=== PATIENT | female | born 1930 | race African-American/Black ===

== ENCOUNTER 2016-06-30 20:12 | Emergency (ER) | payer MEDICARE, OTHER ==
[~2016-06-30] VITALS: Ht 154.9 cm; Wt 49.9 kg
[~2016-06-30 20:12] MED LIST: BISM1CAP PO; CARB15DR3 EACHEYE; DEXL60CA PO; FURO40TA4 PO; LEVO25TA4 PO; LEVO50TA5 PO; LOSA25TA4 PO; METO-269 PO; METO10TA81 PO; MULT-658 PO; POLY17PO5 PO; POTA10TA5 PO; PRAV40TA2 PO; RALO60TA PO; oscal
[2016-07-01 00:30] VITALS: BP 216/88
[2016-07-01] MEDS ORDERED: DOCU100C5 PO (00:52)
[2016-07-01] MEDS ORDERED: SENN8.6T3 PO (00:52)
--- NOTE | 2016-07-01 00:52 | PHYS DOC ---
Past Medical History Past Medical History: Diverticulosis, GERD, High Cholesterol, Hypertension, Hypothyroid, IBS Additional Past Medical Histor: H-Pylori, LE edema, borderline glaucoma, dry eyes Past Surgical History: Hysterectomy, Other Additional Past Surgical Histo: cataract sg bilat eyes, Alcohol Use: None Drug Use: None Adult General Chief Complaint Chief Complaint: CONSTIPATION HPI HPI 86-year-old female presenting to the emergency department today with constipation for the past few days. She denies abdominal pain. She is tried MiraLAX without relief. She has a history of using milk of magnesia and was told not to use that anymore. Otherwise she denies nausea vomiting. She has been passing flatus. Onset 2 days. Location GI tract. Duration intermittent. No alleviating factors present. Review of systems is negative for chest pain shortness of breath nausea vomiting fevers chills. She denies abdominal pain. All other review of systems is negative unless otherwise noted in history of present illness. Review of Systems Review of Systems SEE ABOVE. Allergies Allergies Allergies Coded Allergies Type Severity Reaction Last Updated Verified atorvastatin Allergy Intermediate rash 05/18/15 Yes azithromycin Allergy Intermediate very red face, neck, and chest 05/18/15 Yes clarithromycin Allergy Intermediate rash 05/18/15 Yes meperidine Adverse Reaction Intermediate N&V 05/18/15 Yes midazolam Adverse Reaction Intermediate N&V 03/02/15 No Physical Exam Physical Exam Constitutional: Well developed, well nourished, no acute distress, non-toxic appearance. HENT: Normocephalic, atraumatic, bilateral external ears normal, oropharynx moist, no oral exudates, nose normal. Eyes: PERRLA, EOMI, conjunctiva normal, no discharge. Neck: Normal range of motion, no tenderness, supple, no stridor. [] Cardiovascular:Heart rate regular rhythm, no murmur [] Lungs & Thorax: Bilateral breath sounds clear to auscultation Abdomen: Soft nontender abdomen without rebound tenderness or guarding present. Negative McBurneys point. Negative Swanson sign. No ecchymosis present. Skin: Warm, dry, no erythema, no rash. [] Back: No tenderness, no CVA tenderness. [] Extremities: No tenderness, no cyanosis, no clubbing, ROM intact, no edema. Neurologic: Alert and oriented X 3, normal motor function, normal sensory function, no focal deficits noted. Psychologic: Affect normal, judgement normal, mood normal. [] Current Patient Data Vital Signs Vital Signs Date Time Temp Pulse Resp B/P Pulse Ox O2 Delivery O2 Flow Rate FiO2 06/30/16 21:27 97.8 74 16 191/89 97 Room Air 97.8 EKG EKG [] Radiology/Procedures Radiology/Procedures [] Course & Med Decision Making Course & Med Decision Making Pertinent Labs and Imaging studies reviewed. (See chart for details) [] 86-year-old female presenting to the emergency department with constipation without abdominal pain. Vital signs afebrile normal heart rate. Blood pressure elevated in the emergency department however she reports chronically. She denies any evidence of end organ dysfunction. She denies vision changes, oliguria, chest pain shortness of breath. No pulmonary edema on auscultation of the lungs. Abdomen was soft and nontender. I recommended the patient start docusate and senna in addition to her MiraLAX and follow up with her primary care doctor over the next 2-3 days. Also she needs another colonoscopy as it is been more than 5 years so I referred her to Dr. Fields her GI specialist for further evaluation workup and care as well. Dragon Disclaimer Dragon Disclaimer This electronic medical record was generated, in whole or in part, using a voice recognition dictation system. Departure Departure Impression: Primary Impression: Constipation Disposition: 01 HOME, SELF-CARE Condition: STABLE Referrals: NIKKI FOX MD (PCP) Patient Instructions: Constipation, Adult Additional Instructions: Thank you for allowing us to participate in your care today. Followup with your primary care physician in 3 days if your symptoms do not improve. If you do not have a primary care provider you can ask for a list of our primary care providers. Return to the emergency department you have any new or concerning findings. This should be evaluated by the primary care physician and any necessary consulting services for continued management within a few days after discharge. Return to emergency room if you have any new or concerning symptoms including but not limited to fever, chills, nausea, vomiting, intractable pain, any new rashes, chest pain, shortness of air, uncontrolled bleeding, difficulty breathing, and/or vision loss. Scripts Sennosides (Senna)8.6 Mg Tablet8.6 Mg PO DAILY #14 Prov:NICK ROTHMAN MD 07/01/16 Docusate Sodium 100 Mg Capsule1 Cap PO DAILY #30 CAP Prov:NICK ROTHMAN MD 07/01/16 NICK ROTHMAN MD Jul 01, 2016 00:52
== END 2016-07-01 01:10 | disposition home or self-care (01) ==
LOC: ER 20:12
DX: K59.00 Constipation, unspecified (principal); K58.9 Irritable bowel syndrome, unspecified; K21.9 Gastro-esophageal reflux disease without esophagitis; I10 Essential (primary) hypertension; E78.00 Pure hypercholesterolemia, unspecified; E03.9 Hypothyroidism, unspecified; Z90.710 Acquired absence of both cervix and uterus; Z88.1 Allergy status to other antibiotic agents; Z88.8 Allergy status to other drugs, medicaments and biological substances
CPT/HCPCS: 99283

== ENCOUNTER → 2016-10-27 | Outpatient (CLI) | payer MEDICARE, OTHER ==
[~2016-10-27] MED LIST changes: -DEXL60CA PO; +DEXL60CA2 PO; +DOCU100C28 PO; +POLY17PO29 PO; -POLY17PO5 PO; +SENN-79 PO
--- NOTE | 2016-10-27 13:17 | KCIC ---
Indication: Left leg pain and tingling in the thigh. Grayscale, color-flow and duplex Doppler evaluation of the left lower extremity deep venous system was performed. FINDINGS: There is no evidence of a left lower extremity DVT. The left lower extremity venous system demonstrates normal compressibility with normal response to augmentation and Valsalva. No soft tissue fluid collections are identified. IMPRESSION: No evidence of left lower extremity DVT. Electronically signed by: Yung Wong MD (10/27/2016 1:13 PM) [id number]
== END | disposition home or self-care (01) ==
LOC: KCIC US 12:22
PROVIDERS: ATTEND Podiatrist Foot & Ankle Surgery
DX: M79.605 Pain in left leg (principal); R20.2 Paresthesia of skin
CPT/HCPCS: 93971

== ENCOUNTER 2017-01-13 13:06 | Emergency (ER) | payer MEDICARE, OTHER ==
[~2017-01-13] VITALS: Ht 152.4 cm; Wt 49.0 kg
--- NOTE | 2017-01-13 13:44 | PHYS DOC ---
Past Medical History Past Medical History: Diverticulosis, GERD, High Cholesterol, Hypertension, Hypothyroid, IBS Additional Past Medical Histor: H-Pylori, LE edema, borderline glaucoma, dry eyes Past Surgical History: Hysterectomy, Other Additional Past Surgical Histo: cataract sg bilat eyes, Alcohol Use: None Drug Use: None Adult General Chief Complaint Chief Complaint: CONTISPATION HPI HPI Patient is a 86 year old female who presents with. She states Sunday was a last time she had normal bowel movement she does suffer from constipation is been on different medications for this. She was seen here recently and started on . She states she has some pain in the left lower quadrant. She denies any fevers chills nausea or vomiting, she denies any blood in her stools. She states she has been passing gas. She states she's had a history of pelvic floor surgeries, and a hysterectomy. Review of Systems Review of Systems Constitutional: Denies fever or chills [] Eyes: Denies change in visual acuity, redness, or eye pain [] HENT: Denies nasal congestion or sore throat [] Respiratory: Denies cough or shortness of breath [] Cardiovascular: No additional information not addressed in HPI [] GI: Positive for abdominal pain,Denies nausea, vomiting, bloody stools or diarrhea [] : Denies dysuria or hematuria [] Musculoskeletal: Denies back pain or joint pain [] Integument: Denies rash or skin lesions [] Neurologic: Denies headache, focal weakness or sensory changes [] Endocrine: Denies polyuria or polydipsia [] Current Medications Current Medications Current Medications Medications (Trade) Dose Ordered Sig/Levon Start Time Stop Time Status Last Admin Dose Admin Info (Do NOT chart on this entry -- for MONITORING) 1 each PRN DAILY PRN 01/13/17 15:30 01/15/17 15:29 Iohexol (Omnipaque 300 Mg/ml) 75 ml 1X ONCE 01/13/17 15:15 01/13/17 15:16 DC 01/13/17 16:14 75 ML Magnesium Citrate (Citroma) 296 ml 1X ONCE 01/13/17 18:15 01/13/17 18:16 Ringer's Solution 500 ml @ 1,000 mls/hr Q30M 01/13/17 15:01 01/13/17 15:30 DC 01/13/17 15:29 1,000 MLS/HR Sodium Monofluorophosphate (Fleet Adult) 133 ml 1X ONCE 01/13/17 17:00 01/13/17 17:01 DC 01/13/17 17:31 133 ML Allergies Allergies Allergies Coded Allergies Type Severity Reaction Last Updated Verified atorvastatin Allergy Intermediate rash 05/18/15 Yes azithromycin Allergy Intermediate very red face, neck, and chest 05/18/15 Yes clarithromycin Allergy Intermediate rash 05/18/15 Yes meperidine Adverse Reaction Intermediate N&V 05/18/15 Yes midazolam Adverse Reaction Intermediate N&V 03/02/15 No Physical Exam Physical Exam Constitutional: Well developed, well nourished, no acute distress, non-toxic appearance. [] HENT: Normocephalic, atraumatic, bilateral external ears normal, oropharynx moist, no oral exudates, nose normal. [] Eyes: PERRLA, EOMI, conjunctiva normal, no discharge. [] Neck: Normal range of motion, no tenderness, supple, no stridor. [] Cardiovascular:Heart rate regular rhythm, no murmur [] Lungs & Thorax: Bilateral breath sounds clear to auscultation [] Abdomen: Bowel sounds hyperactive, high-pitched, soft, no tenderness, no masses , no pulsatile masses. [] Skin: Warm, dry, no erythema, no rash. [] Back: No tenderness, no CVA tenderness. [] Extremities: No tenderness, no cyanosis, no clubbing, ROM intact, no edema. [] Neurologic: Alert and oriented X 3, normal motor function, normal sensory function, no focal deficits noted. [] Psychologic: Affect normal, judgement normal, mood normal. [] Current Patient Data Vital Signs Vital Signs Date Time Temp Pulse Resp B/P (MAP) Pulse Ox O2 Delivery O2 Flow Rate FiO2 01/13/17 14:00 98.2 74 18 98 Room Air 98.2 Lab Values Laboratory Tests Test 01/13/17 15:35 01/13/17 16:12 White Blood Count 7.0 x10^3/uL (4.0-11.0) Red Blood Count 3.82 x10^6/uL (3.50-5.40) Hemoglobin 12.2 g/dL (12.0-15.5) Hematocrit 36.1 % (36.0-47.0) Mean Corpuscular Volume 95 fL (79-100) Mean Corpuscular Hemoglobin 32 pg (25-35) Mean Corpuscular Hemoglobin Concent 34 g/dL (31-37) Red Cell Distribution Width 13.4 % (11.5-14.5) Platelet Count 214 x10^3/uL (140-400) Neutrophils (%) (Auto) 80 % (31-73) H Lymphocytes (%) (Auto) 8 % (24-48) L Monocytes (%) (Auto) 11 % (0-9) H Eosinophils (%) (Auto) 1 % (0-3) Basophils (%) (Auto) 0 % (0-3) Neutrophils # (Auto) 5.6 x10^3uL (1.8-7.7) Lymphocytes # (Auto) 0.6 x10^3/uL (1.0-4.8) L Monocytes # (Auto) 0.8 x10^3/uL (0.0-1.1) Eosinophils # (Auto) 0.0 x10^3/uL (0.0-0.7) Basophils # (Auto) 0.0 x10^3/uL (0.0-0.2) Prothrombin Time 12.8 SEC (11.7-14.0) Prothrombin Time INR 1.0 (0.8-1.1) PTT 32 SEC (24-38) Sodium Level 132 mmol/L (136-145) L Potassium Level 3.9 mmol/L (3.5-5.1) Chloride Level 96 mmol/L (98-107) L Carbon Dioxide Level 30 mmol/L (21-32) Anion Gap 6 (6-14) Blood Urea Nitrogen 13 mg/dL (7-20) Creatinine 0.5 mg/dL (0.6-1.0) L Estimated GFR (Cockcroft-Gault) 141.9 Glucose Level 111 mg/dL (70-99) H Calcium Level 9.1 mg/dL (8.5-10.1) Total Bilirubin 0.3 mg/dL (0.2-1.0) Direct Bilirubin 0.1 mg/dL (0.0-0.2) Aspartate Amino Transferase (AST) 33 U/L (15-37) Alanine Aminotransferase (ALT) 26 U/L (14-59) Alkaline Phosphatase 80 U/L (46-116) Total Protein 7.2 g/dL (6.4-8.2) Albumin 3.7 g/dL (3.4-5.0) Lipase 171 U/L (73-393) Urine Collection Type Unknown Urine Color Yellow Urine Clarity Clear Urine pH 7.0 Urine Specific [place] <=1.005 Urine Protein Negative mg/dL (NEG-TRACE) Urine Glucose (UA) Negative mg/dL (NEG) Urine Ketones (Stick) Negative mg/dL (NEG) Urine Blood Negative (NEG) Urine Nitrite Negative (NEG) Urine Bilirubin Negative (NEG) Urine Urobilinogen Dipstick 0.2 mg/dL (0.2 mg/dL) Urine Leukocyte Esterase Negative (NEG) Urine RBC Occ /HPF (0-2) Urine WBC Occ /HPF (0-4) Urine Squamous Epithelial Cells Few /LPF Urine Bacteria 0 /HPF (0-FEW) Laboratory Tests 01/13/17 15:35 Laboratory Tests 01/13/17 15:35 EKG EKG [] Radiology/Procedures Radiology/Procedures [facility] [address] [place] [address] IMAGING REPORT Signed PATIENT: JEFFERY NO ACCOUNT: [id number] : 1930 LOCATION: ER AGE: 86 SEX: F EXAM STATUS: REG ER ORD. PHYSICIAN: EDX DASILVA MD REASON: abd pain PROCEDURE: CT ABD PELV W/ IV CONTRST ONLY CT SCAN OF THE ABDOMEN AND PELVIS WITH IV CONTRAST. History: Abdominal pain, no bowel movement for 3 days Comparison: February 26, 2015. Procedure: Contiguous axial images of the abdomen and pelvis were performed after the administration of 75 cc of Omni 300 IV contrast and without oral contrast. CT Abdomen with contrast: Findings: Liver: Unremarkable Spleen: Unremarkable Pancreas: Unremarkable Adrenal Glands: Unremarkable Kidneys: Unremarkable There is no mass or lymphadenopathy. There is no free air. There is no free fluid. Impression: No acute findings. End Impression CT Pelvis with Contrast: Findings: The urinary bladder appears normal. There is no free fluid. There is no lymphadenopathy. There may have been prior hysterectomy. Urinary bladder sits low in the pelvis suggesting pelvic relaxation. This is unchanged. The L2 vertebral body compression fracture seen present. The L3 and L4 vertebral body compression fractures are not seen previously but appear old. The appendix is not seen. Impression: Old vertebral body compression fractures. No acute findings. PQRS Compliance Statement: One or more of the following individualized dose reduction techniques were utilized for this examination: 1. Automated exposure control 2. Adjustment of the mA and/or kV according to patient size 3. Use of iterative reconstruction technique Electronically signed by: Tegan Kennedy III, MD (01/13/2017 4:40 PM) [facility] DICTATED and SIGNED BY: TEGAN KENNEDY III, MD DATE: 01/13/17 4993 CC: DEX DASILVA MD; NIKKI FOX MD ~ Impressions: Constipation Hypertension Course & Med Decision Making Course & Med Decision Making Pertinent Labs and Imaging studies reviewed. (See chart for details) Acute abdominal series was concerning for possible mild ileus, CT scan nonacute. Patient received an enema and has had good success. She feels better. She's being discharged home with mag citrate. Return precautions given. She is to follow-up with Dr. Fields with GI, her daughter is with her and giving discharged in stable condition this time. Patient's blood pressures to 18 systolic and according to the patient and her daughter she has white coat syndrome and since she's having discomfort from her constipation is why her blood pressures up. He states they will recheck on the get home and follow-up if it stays elevated. She doesn't have a headache or any other concerning symptoms at this time. Dragon Disclaimer Dragon Disclaimer This electronic medical record was generated, in whole or in part, using a voice recognition dictation system. Departure Departure Impression: Primary Impression: Constipation Disposition: 01 HOME, SELF-CARE Condition: STABLE Referrals: NIKKI FOX MD (PCP) OBDULIA FIELDS MD Patient Instructions: Constipation, Adult, [id number] Additional Instructions: You were seen today for your constipation. The CAT scan did not show any acute abnormality's. Your blood work also was within normal limits. You had good success with an enema. He remained discharged with mag citrate. Please drink half the bottle and wait approximate hour if you do not have a bowel movement that he can consume the rest the bottle. If you develop severe abdominal pain, fevers, uncontrolled nausea vomiting or other concerns please return back to ER. You will need to follow-up with Dr. Fields with GI. Problem Qualifiers Primary Impression: Constipation Constipation type: unspecified constipation type Qualified Codes: K59.00 - Constipation, unspecified DEX DASILVA MD Jan 13, 2017 13:44
--- NOTE | 2017-01-13 14:55 | RAD ---
Three-view acute abdominal series. History: Constipation 3 views were taken for an acute abdominal series. There are granulomas in the right lung. The lungs are free of infiltrates. Heart is normal in size. There is no effusion. There is thoracolumbar scoliosis. There is no free air on the upright view of the abdomen. There are nonspecific air-fluid levels. There is mild to moderate stool in the colon. There is mild stool in the rectum. There is no small bowel obstruction. Impression: 1. Nonspecific air-fluid levels possible mild ileus. 2. Mild to moderate stool in the colon. 3. No acute chest disease.
[2017-01-13] MEDS ORDERED: IV RINGERS,LACTATED 1000ML 500 ML IV SCH (15:01)
[2017-01-13] MEDS ORDERED: IOHEXOL 300 MG/ML 75 ML VIAL IV ONE (15:15)
[2017-01-13] MEDS ORDERED: CONTRAST GIVEN MC PRN (15:30)
[2017-01-13 15:51] LABS: BASO % 0 % (0-3); EOS % 1 % (0-3); HEMATOCRIT 36.1 % (36.0-47.0); HEMOGLOBIN 12.2 g/dL (12.0-15.5); LYMPH # 0.6 x10^3/uL (1.0-4.8); LYMPH % 8 % (24-48); MEAN CORPUSCULAR HEMOGLOBIN 32 pg (25-35); MEAN CORPUSCULAR HGB CONC 34 g/dL (31-37); MEAN CORPUSCULAR VOLUME 95 fL (79-100); MONO % 11 % (0-9); NEUT % 80 % (31-73); PLATELET COUNT 214 x10^3/uL (140-400); RED BLOOD COUNT 3.82 x10^6/uL (3.50-5.40); RED CELL DISTRIBUTION WIDTH 13.4 % (11.5-14.5)
[2017-01-13 15:56] LABS: CALCIUM 9.1 mg/dL (8.5-10.1); CREATININE 0.5 mg/dL (0.6-1.0); GFR 141.9; POTASSIUM 3.9 mmol/L (3.5-5.1)
[2017-01-13 16:04] LABS: PROTHROMBIN TIME PATIENT 12.8 SEC (11.7-14.0)
[2017-01-13 16:05] LABS: ALBUMIN 3.7 g/dL (3.4-5.0); DIRECT BILIRUBIN 0.1 mg/dL (0.0-0.2); TOTAL BILIRUBIN 0.3 mg/dL (0.2-1.0); TOTAL PROTEIN 7.2 g/dL (6.4-8.2)
[2017-01-13 16:24] LABS: BILIRUBIN,URINE NEGATIVE (NEG); GLUCOSE,URINE NEGATIVE (NEG); NITRITE,URINE NEGATIVE (NEG); PROTEIN,URINE NEGATIVE (NEG-TRACE); UROBILINOGEN,URINE 0.2 mg/dL (0.2 mg/dL)
[2017-01-13 16:41] LABS: BACTERIA,URINE 0 /HPF (0-FEW); RBC,URINE OCC /HPF (0-2); SQUAMOUS EPITHELIAL CELL,UR FEW /LPF; WBC,URINE OCC /HPF (0-4)
--- NOTE | 2017-01-13 16:44 | RAD ---
CT SCAN OF THE ABDOMEN AND PELVIS WITH IV CONTRAST. History: Abdominal pain, no bowel movement for 3 days Comparison: February 26, 2015. Procedure: Contiguous axial images of the abdomen and pelvis were performed after the administration of 75 cc of Omni 300 IV contrast and without oral contrast. CT Abdomen with contrast: Findings: Liver: Unremarkable Spleen: Unremarkable Pancreas: Unremarkable Adrenal Glands: Unremarkable Kidneys: Unremarkable There is no mass or lymphadenopathy. There is no free air. There is no free fluid. Impression: No acute findings. End Impression CT Pelvis with Contrast: Findings: The urinary bladder appears normal. There is no free fluid. There is no lymphadenopathy. There may have been prior hysterectomy. Urinary bladder sits low in the pelvis suggesting pelvic relaxation. This is unchanged. The L2 vertebral body compression fracture seen present. The L3 and L4 vertebral body compression fractures are not seen previously but appear old. The appendix is not seen. Impression: Old vertebral body compression fractures. No acute findings. PQRS Compliance Statement: One or more of the following individualized dose reduction techniques were utilized for this examination: 1. Automated exposure control 2. Adjustment of the mA and/or kV according to patient size 3. Use of iterative reconstruction technique Electronically signed by: Mervin Lucio III, MD (01/13/2017 4:40 PM) [facility]
[2017-01-13] MEDS ORDERED: SODIUM PHOSPHATES 19/7GM 133 ML ENEMA. PR ONE (17:00)
[2017-01-13 18:07] VITALS: BP 223/94
[2017-01-13] MEDS ORDERED: MAGNESIUM CITRATE 296 ML SOLUTION. PO ONE (18:15)
== END 2017-01-13 18:42 | disposition home or self-care (01) ==
LOC: ER 13:06
DX: K59.00 Constipation, unspecified (principal); E78.00 Pure hypercholesterolemia, unspecified; I10 Essential (primary) hypertension; E03.9 Hypothyroidism, unspecified; K21.9 Gastro-esophageal reflux disease without esophagitis; K58.9 Irritable bowel syndrome, unspecified; Z87.19 Personal history of other diseases of the digestive system; Z90.710 Acquired absence of both cervix and uterus; Z88.6 Allergy status to analgesic agent; Z88.1 Allergy status to other antibiotic agents; Z88.8 Allergy status to other drugs, medicaments and biological substances
CPT/HCPCS: 36415; 74022; 74177; 80048; 80076; 81001; 83690; 85025; 85610; 85730; 96360; 99285; Q9967; J7120

== ENCOUNTER 2017-01-15 09:22 | Inpatient (IN) | payer MEDICARE, OTHER ==
[~2017-01-15] VITALS: Ht 152.4 cm; Wt 47.8 kg
--- NOTE | 2017-01-15 09:52 | EKG ---
[facility] [address] [place] [address] Test Date: 2017-01-15 Test Time: 09:30:58 Pat Name: JEFFERY NO Department: Room: Gender: F Sanitary Plumber: : 1930 Requested By: SAMIA BURNETTE Order Number: [id number] Reading MD: Danish Hickey Measurements Intervals [place] Rate: 81 P: 90 IN: 152 QRS: 49 QRSD: 92 T: 44 QT: 374 QTc: 435 Interpretive Statements SINUS RHYTHM Electronically Signed On 02-06-2017 14:27:21 CDT by Danish Hickey
[2017-01-15 10:09] LABS: BILIRUBIN,URINE NEGATIVE (NEG); GLUCOSE,URINE NEGATIVE (NEG)
[2017-01-15 10:10] LABS: BACTERIA,URINE 0 /HPF (0-FEW); NITRITE,URINE NEGATIVE (NEG); PROTEIN,URINE TRACE mg/dL (NEG-TRACE); RBC,URINE OCC /HPF (0-2); UROBILINOGEN,URINE 0.2 mg/dL (0.2 mg/dL); WBC,URINE OCC /HPF (0-4)
[2017-01-15 10:17] LABS: BASO % 0 % (0-3); EOS % 0 % (0-3); HEMATOCRIT 34.8 % (36.0-47.0); HEMOGLOBIN 11.8 g/dL (12.0-15.5); LYMPH # 0.3 x10^3/uL (1.0-4.8); LYMPH % 4 % (24-48); MEAN CORPUSCULAR HEMOGLOBIN 32 pg (25-35); MEAN CORPUSCULAR HGB CONC 34 g/dL (31-37); MEAN CORPUSCULAR VOLUME 94 fL (79-100); MONO % 6 % (0-9); NEUT % 89 % (31-73); PLATELET COUNT 208 x10^3/uL (140-400); RED BLOOD COUNT 3.71 x10^6/uL (3.50-5.40); RED CELL DISTRIBUTION WIDTH 13.4 % (11.5-14.5); WHITE BLOOD COUNT 7.4 x10^3/uL (4.0-11.0)
[2017-01-15 10:25] LABS: CALCIUM 9.1 mg/dL (8.5-10.1); CREATININE 0.4 mg/dL (0.6-1.0); GFR 183.6; POTASSIUM 4.4 mmol/L (3.5-5.1)
[2017-01-15] MEDS ORDERED: IV NORMAL SALINE 1000ML BAG 1,000 ML IV ONE ×2 (10:30→14:00)
[2017-01-15] MEDS ORDERED: fentaNYL PF VIAL 100 MCG/2 ML VIAL IV PRN ×2 (10:30→14:00)
[2017-01-15 10:33] LABS: ALBUMIN 3.6 g/dL (3.4-5.0); TOTAL BILIRUBIN 0.6 mg/dL (0.2-1.0); TOTAL PROTEIN 7.1 g/dL (6.4-8.2)
[2017-01-15] MEDS ORDERED: ONDANSETRON PF 4 MG/2 ML VIAL. IV ONE (10:45)
[2017-01-15] MEDS ORDERED: METOPROLOL SUCC 24HR ER 50 MG TAB.ER.24H. PO ONE (10:45)
[2017-01-15] MEDS ORDERED: LEVOTHYROXINE 50 MCG TABLET PO ONE (10:45)
[2017-01-15] MEDS ORDERED: CEPHALEXIN 250 MG CAPSULE. PO ONE (10:45)
--- NOTE | 2017-01-15 10:45 | ED.ADGEN ---
Past Medical History Past Medical History: Diverticulosis, GERD, High Cholesterol, Hypertension, Hypothyroid, IBS Additional Past Medical Histor: H-Pylori, LE edema, borderline glaucoma, dry eyes Past Surgical History: Hysterectomy, Other Additional Past Surgical Histo: cataract sg bilat eyes, rectal surgery, pelvic floor Alcohol Use: None Drug Use: None Adult General Chief Complaint Chief Complaint: NAUSEA/VOMITING/DIARRHA HPI HPI Patient is a 86 year old female who presents with vague lower abdominal pain, diarrhea, generalized fatigue, nausea and inability to keep fluids down. Patient states her symptoms started last week when she was diagnosed with constipation and treated with an enema and mag citrate after having a CT performed showing no acute findings. Then she developed watery diarrhea and this persisted and continues. She's had no dysuria or change in urination, although actively on Keflex for reported UTI. Denies fever. Abdominal pain has changed. She also reports left lower back pain, worse with rotation or bending , no radiation to legs, no new bowel/bladder incontinence reported or saddle sensory change. Denies fevers. Review of Systems Review of Systems Constitutional: Denies fever or chills. [] Eyes: Denies change in visual acuity. [] HENT: Denies nasal congestion or sore throat. [] Respiratory: Denies cough or shortness of breath. [] Cardiovascular: Denies chest pain or edema. [] GI: per hpi : Denies dysuria. [] Musculoskeletal: Denies joint pain. [] Integument: Denies rash. [] Neurologic: Denies headache, focal weakness or sensory changes. [] Current Medications Current Medications Current Medications Medications (Trade) Dose Ordered Sig/Levon Start Time Stop Time Status Last Admin Dose Admin Cephalexin HCl (Keflex) 500 mg 1X ONCE 01/15/17 10:45 01/15/17 10:46 DC 01/15/17 11:07 500 MG Fentanyl Citrate (Fentanyl 2ml Vial) 25 mcg PRN Q15MIN PRN 01/15/17 10:30 01/15/17 10:42 25 MCG Levothyroxine Sodium (Synthroid) 50 mcg 1X ONCE 01/15/17 10:45 01/15/17 10:46 DC 01/15/17 11:07 50 MCG Metoprolol Succinate (Toprol Xl) 50 mg 1X ONCE 01/15/17 10:45 01/15/17 10:46 DC 01/15/17 11:08 50 MG Ondansetron HCl (Zofran) 4 mg 1X ONCE 01/15/17 10:45 01/15/17 10:46 DC 01/15/17 11:06 4 MG Sodium Chloride 1,000 ml @ 1,000 mls/hr 1X ONCE 01/15/17 10:30 01/15/17 11:29 DC 01/15/17 10:40 1,000 MLS/HR Allergies Allergies Allergies Coded Allergies Type Severity Reaction Last Updated Verified atorvastatin Allergy Intermediate rash 05/18/15 Yes azithromycin Allergy Intermediate very red face, neck, and chest 05/18/15 Yes clarithromycin Allergy Intermediate rash 05/18/15 Yes meperidine Adverse Reaction Intermediate N&V 05/18/15 Yes midazolam Adverse Reaction Intermediate N&V 03/02/15 No Physical Exam Physical Exam Constitutional: Well developed, well nourished, pale, doesn't want to move, appears uncomfortable HENT: Normocephalic, atraumatic, bilateral external ears normal, oropharynx moist, no oral exudates, nose normal. [] Eyes: PERRLA, EOMI, conjunctiva normal, no discharge. [] Neck: Normal range of motion, no tenderness, supple, no stridor. [] Cardiovascular:Heart rate regular rhythm, no murmur [] Lungs & Thorax: Bilateral breath sounds clear to auscultation [] Abdomen: Bowel sounds normal, soft, no tenderness, no masses, no pulsatile masses. [] Skin: Warm, dry, no erythema, no rash. [] Back: diffuse nonfocal ttp along lower back without focal midline stepoffs, neg straight leg test bilaterally. Extremities: No tenderness, no cyanosis, no clubbing, ROM intact, no edema. [] Neurologic: Alert and oriented X 3, normal motor function, normal sensory function, no focal deficits noted. [] Current Patient Data Vital Signs Vital Signs Date Time Temp Pulse Resp B/P (MAP) Pulse Ox O2 Delivery O2 Flow Rate FiO2 01/15/17 11:08 81 192/79 01/15/17 11:04 98 Room Air 01/15/17 10:46 18 01/15/17 09:24 97.9 97.9 Lab Values Laboratory Tests Test 01/15/17 09:50 01/15/17 10:05 Urine Collection Type U cath Urine Color Yellow Urine Clarity Clear Urine pH 7.0 Urine Specific [place] 1.020 Urine Protein Trace mg/dL (NEG-TRACE) Urine Glucose (UA) Negative mg/dL (NEG) Urine Ketones (Stick) 80 mg/dL (NEG) Urine Blood Trace (NEG) Urine Nitrite Negative (NEG) Urine Bilirubin Negative (NEG) Urine Urobilinogen Dipstick 0.2 mg/dL (0.2 mg/dL) Urine Leukocyte Esterase Negative (NEG) Urine RBC Occ /HPF (0-2) Urine WBC Occ /HPF (0-4) Urine Transitional Epithelial Cells Occ /LPF Urine Bacteria 0 /HPF (0-FEW) Urine Hyaline Casts Moderate /HPF White Blood Count 7.4 x10^3/uL (4.0-11.0) Red Blood Count 3.71 x10^6/uL (3.50-5.40) Hemoglobin 11.8 g/dL (12.0-15.5) L Hematocrit 34.8 % (36.0-47.0) L Mean Corpuscular Volume 94 fL (79-100) Mean Corpuscular Hemoglobin 32 pg (25-35) Mean Corpuscular Hemoglobin Concent 34 g/dL (31-37) Red Cell Distribution Width 13.4 % (11.5-14.5) Platelet Count 208 x10^3/uL (140-400) Neutrophils (%) (Auto) 89 % (31-73) H Lymphocytes (%) (Auto) 4 % (24-48) L Monocytes (%) (Auto) 6 % (0-9) Eosinophils (%) (Auto) 0 % (0-3) Basophils (%) (Auto) 0 % (0-3) Neutrophils # (Auto) 6.6 x10^3uL (1.8-7.7) Lymphocytes # (Auto) 0.3 x10^3/uL (1.0-4.8) L Monocytes # (Auto) 0.5 x10^3/uL (0.0-1.1) Eosinophils # (Auto) 0.0 x10^3/uL (0.0-0.7) Basophils # (Auto) 0.0 x10^3/uL (0.0-0.2) Segmented Neutrophils % 93 % (35-66) H Lymphocytes % 4 % (24-48) L Monocytes % 3 % (0-10) Platelet Estimate Adequate (ADEQUATE) Sodium Level 127 mmol/L (136-145) L Potassium Level 4.4 mmol/L (3.5-5.1) Chloride Level 91 mmol/L (98-107) L Carbon Dioxide Level 27 mmol/L (21-32) Anion Gap 9 (6-14) Blood Urea Nitrogen 16 mg/dL (7-20) Creatinine 0.4 mg/dL (0.6-1.0) L Estimated GFR (Cockcroft-Gault) 183.6 BUN/Creatinine Ratio 40 (6-20) H Glucose Level 91 mg/dL (70-99) Calcium Level 9.1 mg/dL (8.5-10.1) Total Bilirubin 0.6 mg/dL (0.2-1.0) Aspartate Amino Transferase (AST) 38 U/L (15-37) H Alanine Aminotransferase (ALT) 24 U/L (14-59) Alkaline Phosphatase 78 U/L (46-116) Total Protein 7.1 g/dL (6.4-8.2) Albumin 3.6 g/dL (3.4-5.0) Albumin/Globulin Ratio 1.0 (1.0-1.7) Laboratory Tests 01/15/17 10:05 Laboratory Tests 01/15/17 10:05 EKG EKG 81 bpm, sinus, normal axis, normal intervals, no ST elevation or depression, nonischemic T waves , interpreted by oh Radiology/Procedures Radiology/Procedures L spine: Impression: Scoliotic spine. Loss of intervertebral body heights in the lumbar spine more prominent at L4 vertebral body also seen on previous CT from 01/13/2017. Acute compression deformity cannot be ruled out. [] Course & Med Decision Making Course & Med Decision Making Pertinent Labs and Imaging studies reviewed. (See chart for details) Pt given pain medication, IV fluids. L spine XRay performed, reviewed findings. Discovered last CT performed after the injury of lower back and no acute fractures were noted at that time. Pt had additional diarrhea in the ED and now with hyponatremia. Will need ongoing fluids while recovering from diarrhea. Pt is on Keflex for recent UTI. She was given her metoprolol, levothyroxine and keflex here in the ED. Dr. Rodas accepted pt for admission for ongoing hydration and monitoring for diarrhea. Diagnosis: Hyponatremia Diarrhea Dragon Disclaimer Dragon Disclaimer This electronic medical record was generated, in whole or in part, using a voice recognition dictation system. SAMIA BURNETTE MD Jan 15, 2017 10:45
[2017-01-15 11:20] LABS: PLT ESTIMATE ADEQUATE (ADEQUATE)
--- NOTE | 2017-01-15 11:21 | RAD ---
Lumbar spine x-rays Indication: Pain from landing hard on a chair last week. Technique: 3 views of the lumbar spine Comparison: CT abdomen/pelvis from 01/13/2017 Findings: S-shaped scoliosis of the spine noted. Loss of vertebral body heights noted at L2, L3, L4 also seen on previous CT abdomen/pelvis. Diffuse osteopenia of the bones. There is intervertebral disc space narrowing in the lower lumbar spine with mild facet arthropathy. Impression: Scoliotic spine. Loss of intervertebral body heights in the lumbar spine more prominent at L4 vertebral body also seen on previous CT from 01/13/2017. Acute compression deformity cannot be ruled out.
[2017-01-15 14:57] VITALS: BP 170/61
[2017-01-15] MEDS: IV NORMAL SALINE 1000ML BAG 1,000 ML IV SCH ×2 (15:15→20:26)
[2017-01-15] MEDS ORDERED: POLYVINYL ALCOHOL 1.4% OPHTH SOLUTION 15ML BOTTLE. OU PRN (15:30)
[2017-01-15] MEDS ORDERED: CEPH-264 PO (15:50)
[2017-01-15] MEDS ORDERED: FLUC100T PO (15:50)
[2017-01-15] MEDS ORDERED: LEVO50TA5 PO (15:50)
[2017-01-15] MEDS ORDERED: LEVOTHYROXINE 25 MCG TABLET. PO SCH (16:00)
[2017-01-15] MEDS: LOSARTAN POTASSIUM 25 MG TABLET. PO SCH (16:00)
[2017-01-15] MEDS: SENNOSIDES 8.6 MG TABLET PO SCH (16:00)
[2017-01-15] MEDS: DOCUSATE SODIUM 100 MG CAPSULE. PO SCH (16:00)
[2017-01-15] MEDS: METOPROLOL SUCC 24HR ER 50 MG TAB.ER.24H. PO SCH (16:00)
[2017-01-15 16:05] VITALS: BP 170/61
[2017-01-15] MEDS ORDERED: INFLUENZA VAX SCREEN BY RX. MC PRN (17:00)
[2017-01-15] MEDS: MULTIVITAMIN with MINERAL TABLET. PO SCH (17:26)
[2017-01-15] MEDS: RALOXIFENE 60 MG TABLET. PO SCH (17:26)
[2017-01-15] MEDS: ENOXAPARIN 40 MG/0.4 ML SYRINGE. SQ SCH (17:26)
[2017-01-15] MEDS: POLYETHYLENE GLYCOL 3350 17 GM PACKET. PO SCH (17:42)
[2017-01-15] MEDS ORDERED: FLU VACC QS2017-18 (36MOS+)/PF 0.5 ML SYRINGE. VAX IM ONE (18:00)
[2017-01-15 19:59] VITALS: BP 128/49
[2017-01-15] MEDS: SIMVASTATIN 10 MG TABLET PO SCH (20:24)
[2017-01-15 23:05] VITALS: BP 123/49
[2017-01-16] VITALS (7 sets, daily range): BP systolic 123–152; BP diastolic 41–56
[2017-01-16 06:05] LABS: BASO % 1 % (0-3); EOS % 1 % (0-3); HEMATOCRIT 29.4 % (36.0-47.0); HEMOGLOBIN 10.4 g/dL (12.0-15.5); LYMPH # 0.6 x10^3/uL (1.0-4.8); LYMPH % 14 % (24-48); MEAN CORPUSCULAR HEMOGLOBIN 33 pg (25-35); MEAN CORPUSCULAR HGB CONC 35 g/dL (31-37); MEAN CORPUSCULAR VOLUME 93 fL (79-100); MONO % 13 % (0-9); NEUT % 71 % (31-73); PLATELET COUNT 188 x10^3/uL (140-400); RED BLOOD COUNT 3.17 x10^6/uL (3.50-5.40); RED CELL DISTRIBUTION WIDTH 13.3 % (11.5-14.5)
[2017-01-16 06:26] LABS: CALCIUM 7.9 mg/dL (8.5-10.1); CREATININE 0.4 mg/dL (0.6-1.0); GFR 183.6; POTASSIUM 3.4 mmol/L (3.5-5.1)
[2017-01-16] MEDS: LEVOTHYROXINE 50 MCG TABLET PO SCH (06:27)
[2017-01-16] MEDS: DOCUSATE SODIUM 100 MG CAPSULE. PO SCH (07:34)
[2017-01-16] MEDS: SENNOSIDES 8.6 MG TABLET PO SCH (07:34)
[2017-01-16] MEDS: MULTIVITAMIN with MINERAL TABLET. PO SCH (09:29)
[2017-01-16] MEDS: RALOXIFENE 60 MG TABLET. PO SCH (09:29)
[2017-01-16] MEDS: METOPROLOL SUCC 24HR ER 50 MG TAB.ER.24H. PO SCH (09:30)
[2017-01-16] MEDS: LOSARTAN POTASSIUM 25 MG TABLET. PO SCH (09:30)
--- NOTE | 2017-01-16 13:15 | PDOC ---
Provider Note Provider Note Pt seen.H&P dictated. #[id number] NIKKI FOX MD Jan 16, 2017 13:15
[2017-01-16] MEDS ORDERED: PANTOPRAZOLE 40 MG TABLET.DR. PO ONE (13:45)
[2017-01-16] MEDS ORDERED: LEVOTHYROXINE 50 MCG TABLET PO SCH (14:00)
--- NOTE | 2017-01-16 15:16 | HP ---
ADMIT DATE: 01/15/2017 PATIENT LOCATION: [facility]. REASON FOR ADMISSION TO THE HOSPITAL: Abdominal pain, hyponatremia and back pain, compression fracture of the spine. HISTORY OF PRESENT ILLNESS: The patient is an 86-year-old female, the patient came to the Emergency Room 3 days ago on Sunday and she was having constipation, was given Fleet enema as well as recommended to take mag citrate the next day. She lives in a [facility]. She took that and she was having lot of diarrhea, and makes it to Sunday. She could not hold her stool. She was runny and last week when seen in the office, was found to have a UTI, was given Keflex for UTI. She had a CT scan of the abdomen and pelvis, which did not show any acute abdominal pathology, but picked up, shows compression fracture of the spine, too new when compared to the previous CT scans. The patient was admitted to the hospital at this time because her sodium was low to 127 and she is still having lot of back problems and diarrhea. PAST MEDICAL HISTORY: The patient has a history of diverticulosis, GERD, hypertension, hyperlipidemia, hypothyroidism, IBS. PAST SURGICAL HISTORY: Hysterectomy. She had a dropped bladder, cataract surgery, pelvic surgery. PERSONAL HISTORY: Denies smoking, alcohol, or drug abuse. The patient lives in an assisted facility at [place]. Ambulates with a walker. ALLERGIES: ATORVASTATIN, ZITHROMAX, CLARITHROMYCIN, DEMEROL, VERSED. MEDICATIONS AT HOME: She is on Lasix 40 mg daily, potassium 10 mEq twice a day, Artificial Tears, Dexilant 60 mg b.i.d., levothyroxine 50 mcg daily, losartan 25 mg daily, metoprolol 50 mg daily, vitamin daily, MiraLax 17 grams daily, potassium 10 mEq twice a day, pravastatin 40 mg daily, Evista 60 mg daily. FAMILY HISTORY: Unremarkable. REVIEW OF SYMPTOMS: Consists of abdominal cramping, back pain and diarrhea. PHYSICAL EXAMINATION: GENERAL: The patient is an elderly female, looks frail. VITAL SIGNS: Temperature 97, pulse 95, respirations 18, blood pressure 198/84, 97 on room air. HEENT: Head is atraumatic. Pupils equal. Oral cavity: Dentures. NECK: Supple. CHEST: Symmetrical. CARDIOVASCULAR: S1, S2. LUNGS: Clear. ABDOMEN: Slight discomfort, nontender. Bowel sounds present. EXTERNAL GENITALIA: No Knott. RECTAL: Deferred. EXTREMITIES: No calf tenderness, no edema. Pulses 1+. NEUROLOGIC: Cranial nerves intact. Moving all extremities. LABORATORY DATA: Shows a white count of 7, hemoglobin 12, platelets 208. Electrolytes show sodium 127, potassium 4.4, chloride 91, bicarbonate 27, BUN 16, creatinine 0.4. LFTs normal. TSH 5.1. Urine is negative for infection. Showed some compression fracture of the L4 on x-ray. The patient had a abdomen and pelvis CT scan on January 13, which shows L3-L4 vertebral fractures and then L2 vertebral fractures. FINAL IMPRESSION: 1. Abdominal pain. 2. Hyponatremia. 3. Diarrhea, probably secondary to laxatives including mag citrate. 4. Hypothyroidism. 5. Osteoporosis with compression fractures. 6. Gastroesophageal reflux disease, irritable bowel syndrome. PLAN: At this time, was admitted to the hospital, was given IV fluids to correct sodium, it has come to 137. Potassium is still low. Stool for C. diff is pending. We will get PT/OT. Dr. Villafana from rehab and further recommendations to follow. NIKKI FOX MD DR: RUCHI/lanie JOB#: [id number] / [id number]
[2017-01-16] MEDS ORDERED: diazePAM 5 MG TABLET PO ONE (15:30)
[2017-01-16] MEDS: ENOXAPARIN 40 MG/0.4 ML SYRINGE. SQ SCH (15:33)
[2017-01-16] MEDS ORDERED: ACETAMINOPHEN/CODEINE 300/30MG TABLET. PO PRN (16:00)
[2017-01-16] MEDS: IV NORMAL SALINE 1000ML BAG 1,000 ML IV SCH (17:46)
[2017-01-16] MEDS: traMADol 50 MG TABLET PO PRN (17:48)
[2017-01-16] MEDS: POTASSIUM CHLORIDE 10 MEQ TABLET.ER. PO SCH (17:48)
[2017-01-16] MEDS: LIDOCAINE (700MG/PATCH) PATCH. TD SCH (17:49)
[2017-01-16] MEDS ORDERED: POTASSIUM CHLORIDE 10 MEQ TABLET.ER. PO ONE (18:00)
--- NOTE | 2017-01-16 20:09 | CONS ---
DATE OF CONSULTATION: 01/16/2017 ATTENDING PHYSICIAN: Polina Rodas MD The patient was seen at the request of Dr. Rodas for rehab evaluation about her back pain. HISTORY OF PRESENT ILLNESS: This is an 86-year-old female admitted to the Emergency Room on 01/15/2017 with severe lower back pain with radiation to her hip area. The patient denies any falls. She apparently had some chronic lower back pain, but while trying to get up from a chair which does not have handrails. She strained her lower back and since then having severe back pain. Chest x-ray taken yesterday, which revealed assist with scoliosis of spine, loss of vertebral body height noted at L2, L3, L4, and also seen on previous CT of abdomen and pelvis, diffuse osteopenia of the bones narrowing of the intervertebral disk spaces in the lower lumbar spine and mild facet arthropathy and L4 vertebral body compression fracture that is more prominent and also seen on previous CT dated 01/13/2017 and acute compression deformity cannot be ruled out, that is the report of Radiology. The patient denies any tingling or numbness sensation in the extremities. The patient was seen in the Emergency Room about 3 days ago on 01/13/2017, having problems with constipation and was given Fleet enema as well as mag citrate and since then she has been having frequent stools. The patient lives at [facility] and she has been independent with her mobility and self-care skills using a roller walker. She had trouble with urinary incontinence for the last few days, she has been taking Keflex for urinary tract infection. The patient with known diverticulosis, gastroesophageal reflux disease, hypertension, hyperlipidemia, hypothyroidism, irritable bowel syndrome, status post hysterectomy and dropped bladder, cataract surgery, pelvic surgery. 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 ALLERGIES: SHE IS KNOWN ALLERGIC TO ATORVASTATIN, ZITHROMAX, ERYTHROMYCIN, DEMEROL AND VERSED. PHYSICAL EXAMINATION: Today revealed an elderly female, thin built, alert, oriented to time, place, person and circumstance and follows commands appropriately, moves all 4 extremities voluntarily where she had 4+/5 grade muscle strength. Deep tendon reflexes are 1 to 2+ and symmetrical and she had equal perception of touch and pinprick sensation bilaterally. She had tenderness to palpation over right lumbar paraspinal muscles and also over the coccyx area. Straight leg raising test is negative bilaterally. She had a crepitus on range of motion of both knee joints without any obvious knee joint effusion and she had some stiffness of both hips. The patient requires some help with bed mobility. I have not tested her transfers or ambulation capacity at this time. Her skin is intact at this time. She has somewhat protuberant abdomen, no significant lumbar paraspinal muscle spasm was noted at this time. The patient had tenderness to palpation over left ring finger, palmar aspect at metacarpophalangeal joint area without any triggering. She apparently had trigger finger injection done in the past with some help, but noted recently some catching sensation. ASSESSMENT: Mobility and self-care limitations with lumbar sprain, superimposed on degenerative disk disease and degenerative joint disease with old osteoporotic L2, L3 and L4 vertebral body compression fracture with some more prominence of L4 vertebral body compression fracture when compared to previous studies to rule out any acute L4 vertebral body compression fracture, no clinical evidence of lumbar radiculopathy. The patient also had scoliotic deformity as per x-ray, but no obvious scoliotic deformity was noted on clinical examination. The patient also had tenosynovitis, left ring finger without any triggering and the patient with known gastroesophageal reflux disease, diverticulosis, hypertension, hyperlipidemia, hypothyroidism, irritable bowel syndrome, recent urinary tract infection and chronic constipation. RECOMMENDATIONS: To obtain MRI scan of her lumbar vertebrae to make sure she is not on a new L4 vertebral body compression fracture. She had tried lumbar corset and had it, but she admits is pressing on her ribs, so she does not wear it. Agree with the plan for physical therapy and occupational therapy. If the new L4 vertebral body compression fracture to consider kyphoplasty. Dr. Rodas, I appreciate asking me to participate in the care of this interesting patient. I will be glad to follow her with you as needed for her rehabilitation. ROSIO KIMBLE MD DR: ELVIRA/laine JOB#: [id number] / [id number]
[2017-01-16] MEDS: POLYETHYLENE GLYCOL 3350 17 GM PACKET. PO SCH (21:32)
[2017-01-16] MEDS: TAMSULOSIN 0.4 MG CAP.ER.24H. PO SCH (21:32)
[2017-01-16] MEDS: SIMVASTATIN 10 MG TABLET PO SCH (21:32)
[2017-01-17 03:31] VITALS: BP 117/46
[2017-01-17 04:55] LABS: CALCIUM 7.8 mg/dL (8.5-10.1); CREATININE 0.4 mg/dL (0.6-1.0); GFR 183.6; POTASSIUM 3.5 mmol/L (3.5-5.1)
[2017-01-17 07:14] VITALS: BP 108/54
[2017-01-17] MEDS: LEVOTHYROXINE 50 MCG TABLET PO SCH (07:36)
[2017-01-17] MEDS: PANTOPRAZOLE 40 MG TABLET.DR. PO SCH (07:36)
[2017-01-17] MEDS: POTASSIUM CHLORIDE 10 MEQ TABLET.ER. PO SCH ×2 (08:00→17:44)
--- NOTE | 2017-01-17 08:52 | RAD ---
MRI lumbar spine without contrast January 16, 2017 INDICATION: Fall with low back pain. History of osteoporosis. COMPARISON: Lumbar spine radiograph January 15, 2017 TECHNIQUE: Multiplanar, multisequence MR imaging of the lumbar spine was performed without intravenous contrast. FINDINGS: There is dextroconvex scoliosis of the lumbar spine with apex dextrocurvature at L3. There is superior endplate compression deformity involving the L3 vertebral body with approximately 25 percent loss of height. There is edema involving the superior margin of the vertebral body. There is no significant retropulsion. There is superior endplate compression deformity with associated edema involving L4 with approximately 50 percent loss of height. No significant retropulsion. There is no epidural hematoma. There is a chronic appearing superior endplate compression deformity involving L2 with a superior endplate Schmorl's node. Visualized portions of the abdomen are within normal limits. Abdominal aorta is normal in course and caliber. No dilated bowel loops are identified. There is a 15 mm bone cyst in the left sacrum. L1-L2: Disc is normal in configuration. There is mild facet arthropathy. No neuroforaminal or spinal canal stenosis. L2-L3: There is a disc bulge asymmetric to the right. Mild to moderate facet arthropathy. No significant neuroforaminal or spinal canal stenosis. L3-L4: There is a disc bulge. Moderate facet arthropathy with ligamentum flavum infolding. Severe left and moderate right neuroforaminal stenosis. Moderate spinal canal stenosis. L4-L5: There is diffuse disc bulge. There is moderate to severe facet arthropathy with ligamentum flavum infolding. Moderate bilateral neural foraminal stenosis. Severe spinal canal stenosis. L5-S1: There is a disc bulge with moderate facet arthropathy. There is severe right and moderate left neuroforaminal stenosis. No significant spinal canal stenosis. IMPRESSION: 1. Superior endplate compression deformities with associated edema involving L3 and L4 with 25 percent loss of height at L3 and 50 percent loss of height at L4. No significant retropulsion or epidural hematoma. Posterior spinous ligamentous complexes intact. 2. Chronic appearing superior endplate compression deformity of L2. 3. Dextroconvex scoliosis of the lumbar spine with associated disc bulges, neuroforaminal and spinal canal stenosis as detailed above. Electronically signed by: Mandi Harris MD (01/17/2017 8:49 AM) [facility]
[2017-01-17] MEDS: RALOXIFENE 60 MG TABLET. PO SCH (09:00)
[2017-01-17] MEDS: SENNOSIDES 8.6 MG TABLET PO SCH (09:00)
[2017-01-17] MEDS: METOPROLOL SUCC 24HR ER 50 MG TAB.ER.24H. PO SCH (09:00)
[2017-01-17] MEDS: MULTIVITAMIN with MINERAL TABLET. PO SCH (09:00)
[2017-01-17] MEDS: LOSARTAN POTASSIUM 25 MG TABLET. PO SCH (09:00)
[2017-01-17] MEDS: DOCUSATE SODIUM 100 MG CAPSULE. PO SCH (09:00)
--- NOTE | 2017-01-17 09:49 | PDOC ---
PROGRESS NOTES Subjective Subjective Nauseated today Objective Objective Vital Signs Date Time Temp Pulse Resp B/P (MAP) Pulse Ox O2 Delivery O2 Flow Rate FiO2 01/17/17 07:14 98.4 67 17 108/54 (72) 96 Room Air 98.4 Intake and Output 01/18/17 07:00 Intake Total 200 ml Balance 200 ml Intake Oral 200 ml Physical Exam Abdomen: Normal bowel sounds, Soft Heart: Regular rate, Normal S1, Normal S2 Extremities: No clubbing General: Alert HEENT: Atraumatic Lungs: Clear to auscultation MUSCULOSKELETAL: No swelling Neck: Supple Neuro: Normal speech Psych/Mental Status: Mental status NL Skin: No breakdown Diagnosis Problem List Problems Medical Problems: (1) Diarrhea Status: Acute Assessment Assessment Problems Medical Problems: (1) Diarrhea Status: Acute FINAL IMPRESSION: 1. Abdominal pain. 2. Hyponatremia. 3. Diarrhea, probably secondary to laxatives including mag citrate. 4. Hypothyroidism. 5. Osteoporosis with compression fractures. 6. Gastroesophageal reflux disease, irritable bowel syndrome. PLAN: C diff neg MRI lumbar spine showed compression fractures L3 and L4. Nausea and vomiting try Zofran, ct abd and pelvis 3 days ago neg Na 135 improved,pot 3.5 Vertebroplasty? We will get PT/OT. Dr. Villafana from rehab and further recommendations to follow. Problems: Plan Plan of Care Problems Medical Problems: (1) Diarrhea Status: Acute Comment Review of Relevant I have reviewed the following items zara (where applicable) has been applied. Labs Laboratory Tests Test 01/17/17 03:20 Sodium Level 135 mmol/L (136-145) Potassium Level 3.5 mmol/L (3.5-5.1) Chloride Level 102 mmol/L (98-107) Carbon Dioxide Level 26 mmol/L (21-32) Anion Gap 7 (6-14) Blood Urea Nitrogen 5 mg/dL (7-20) Creatinine 0.4 mg/dL (0.6-1.0) Estimated GFR (Cockcroft-Gault) 183.6 Glucose Level 98 mg/dL (70-99) Calcium Level 7.8 mg/dL (8.5-10.1) Medications Current Medications Acetaminophen/ Codeine Phosphate (Tylenol #3) 1 tab PRN Q6HRS PRN PO PAIN; Start 01/16/17 at 16:00 Diazepam (Valium) 5 mg 1X ONCE PO Last administered on 01/16/17 15:57; Start 01/16/17 at 15:30; Stop 01/16/17 at 15:46; Status DC Levothyroxine Sodium (Synthroid) 50 mcg DAILY07 PO ; Start 01/16/17 at 14:00; Stop 01/16/17 at 14:10; Status DC Lidocaine (Lidoderm) 1 patch DAILY TD Last administered on 01/16/17 17:49; Start 01/16/17 at 16:00 Pantoprazole Sodium (Protonix) 40 mg 1X ONCE PO Last administered on 15:33; Start 01/16/17 at 13:45; Stop 01/16/17 at 13:46; Status DC Pantoprazole Sodium (Protonix) 40 mg DAILYAC PO Last administered on 01/17/17 07:36; Start 01/17/17 at 07:30 Potassium Chloride (Klor-Con) 10 meq BIDWMEALS PO Last administered on 17:48; Start 01/16/17 at 17:00 Tamsulosin HCl (Flomax) 0.4 mg QHS PO Last administered on 01/16/17 21:32; Start 01/16/17 at 21:00 Tramadol HCl (Ultram) 100 mg PRN Q6HRS PRN PO PAIN Last administered on 17:48; Start 01/16/17 at 16:00 Vitals/I & O Vital Sign - Last 24 Hours 01/16/17 01/16/17 01/16/17 01/16/17 11:29 15:18 17:48 18:48 Temp 97.7 98.6 97.7 98.6 Pulse 61 55 Resp 19 20 18 B/P (MAP) 152/52 (85) 152/54 (86) Pulse Ox 97 96 96 96 O2 Delivery Room Air Room Air Room Air Room Air 01/16/17 01/16/17 01/16/17 01/17/17 19:51 20:00 23:15 03:31 Temp 97.9 97.7 97.5 97.9 97.7 97.5 Pulse 59 57 68 Resp 16 16 16 B/P (MAP) 149/55 (86) 140/41 (74) 117/46 (69) Pulse Ox 93 93 97 O2 Delivery Room Air Room Air Room Air Room Air 01/17/17 07:14 Temp 98.4 98.4 Pulse 67 Resp 17 B/P (MAP) 108/54 (72) Pulse Ox 96 O2 Delivery Room Air Intake and Output 01/17/17 01/17/17 01/18/17 15:00 23:00 07:00 Intake Total 200 ml Balance 200 ml NIKKI FOX MD Jan 17, 2017 09:48
[2017-01-17] MEDS: ONDANSETRON PF 4 MG/2 ML VIAL. IV PRN (10:09)
[2017-01-17] MEDS: IV NORMAL SALINE 1000ML BAG 1,000 ML IV SCH ×2 (10:10→22:35)
[2017-01-17] MEDS: LIDOCAINE (700MG/PATCH) PATCH. TD SCH (10:11)
--- NOTE | 2017-01-17 10:20 | PDOC ---
PROGRESS NOTES Subjective Subjective She feels sick and nauseous. Objective Objective Vital Signs Date Time Temp Pulse Resp B/P (MAP) Pulse Ox O2 Delivery O2 Flow Rate FiO2 01/17/17 07:14 98.4 67 17 108/54 (72) 96 Room Air 98.4 Intake and Output 01/18/17 07:00 Intake Total 200 ml Balance 200 ml Intake Oral 200 ml Physical Exam Physical Exam She is alert,supine in bed and seems to be dehydrated.She had new L3,L4 vertebral body compression fractures and lumbar spinal stenosis. Assessment Assessment Problems Medical Problems: (1) Diarrhea Status: Acute Plan Plan of Care To ask for neurosurgical advise and to ask interventional radiology to see her for L3,L4 kyphoplasty.To SNF or back to assisted living facility when she is medically stable. Comment Review of Relevant I have reviewed the following items zara (where applicable) has been applied. Labs Laboratory Tests Test 01/15/17 15:30 01/15/17 22:27 01/16/17 05:35 01/17/17 03:20 Nasal Screen MRSA (PCR) Negative (Negative) Clostridium difficile Toxin (PCR) Negative (Negative) White Blood Count 4.0 x10^3/uL (4.0-11.0) Red Blood Count 3.17 x10^6/uL (3.50-5.40) Hemoglobin 10.4 g/dL (12.0-15.5) Hematocrit 29.4 % (36.0-47.0) Mean Corpuscular Volume 93 fL (79-100) Mean Corpuscular Hemoglobin 33 pg (25-35) Mean Corpuscular Hemoglobin Concent 35 g/dL (31-37) Red Cell Distribution Width 13.3 % (11.5-14.5) Platelet Count 188 x10^3/uL (140-400) Neutrophils (%) (Auto) 71 % (31-73) Lymphocytes (%) (Auto) 14 % (24-48) Monocytes (%) (Auto) 13 % (0-9) Eosinophils (%) (Auto) 1 % (0-3) Basophils (%) (Auto) 1 % (0-3) Neutrophils # (Auto) 2.9 x10^3uL (1.8-7.7) Lymphocytes # (Auto) 0.6 x10^3/uL (1.0-4.8) Monocytes # (Auto) 0.5 x10^3/uL (0.0-1.1) Eosinophils # (Auto) 0.0 x10^3/uL (0.0-0.7) Basophils # (Auto) 0.0 x10^3/uL (0.0-0.2) Sodium Level 138 mmol/L (136-145) 135 mmol/L (136-145) Potassium Level 3.4 mmol/L (3.5-5.1) 3.5 mmol/L (3.5-5.1) Chloride Level 104 mmol/L (98-107) 102 mmol/L (98-107) Carbon Dioxide Level 26 mmol/L (21-32) 26 mmol/L (21-32) Anion Gap 8 (6-14) 7 (6-14) Blood Urea Nitrogen 6 mg/dL (7-20) 5 mg/dL (7-20) Creatinine 0.4 mg/dL (0.6-1.0) 0.4 mg/dL (0.6-1.0) Estimated GFR (Cockcroft-Gault) 183.6 183.6 Glucose Level 79 mg/dL (70-99) 98 mg/dL (70-99) Calcium Level 7.9 mg/dL (8.5-10.1) 7.8 mg/dL (8.5-10.1) Thyroid Stimulating Hormone (TSH) 5.178 uIU/mL (0.358-3.74) Laboratory Tests Test 01/17/17 03:20 Sodium Level 135 mmol/L (136-145) Potassium Level 3.5 mmol/L (3.5-5.1) Chloride Level 102 mmol/L (98-107) Carbon Dioxide Level 26 mmol/L (21-32) Anion Gap 7 (6-14) Blood Urea Nitrogen 5 mg/dL (7-20) Creatinine 0.4 mg/dL (0.6-1.0) Estimated GFR (Cockcroft-Gault) 183.6 Glucose Level 98 mg/dL (70-99) Calcium Level 7.8 mg/dL (8.5-10.1) Medications Current Medications Fentanyl Citrate (Fentanyl 2ml Vial) 25 mcg PRN Q15MIN PRN IV PAIN Last administered on 01/15/17t 10:42; Start 01/15/17 at 10:30 Sodium Chloride 1,000 ml @ 1,000 mls/hr 1X ONCE IV Last administered on 10:40; Start 01/15/17 at 10:30; Stop 01/15/17 at 11:29; Status DC Ondansetron HCl (Zofran) 4 mg 1X ONCE IV Last administered on 01/15/17 11:06 ; Start 01/15/17 at 10:45; Stop 01/15/17 at 10:46; Status DC Levothyroxine Sodium (Synthroid) 50 mcg 1X ONCE PO Last administered on 11:07; Start 01/15/17 at 10:45; Stop 01/15/17 at 10:46; Status DC Metoprolol Succinate (Toprol Xl) 50 mg 1X ONCE PO Last administered on 11:08; Start 01/15/17 at 10:45; Stop 01/15/17 at 10:46; Status DC Cephalexin HCl (Keflex) 500 mg 1X ONCE PO Last administered on 01/15/17 11:07 ; Start 01/15/17 at 10:45; Stop 01/15/17 at 10:46; Status DC Fentanyl Citrate (Fentanyl 2ml Vial) 50 mcg PRN Q2HR PRN IV PAIN Last administered on 01/16/17 05:41; Start 01/15/17 at 14:00; Stop 01/16/17 at 13:59 ; Status DC Sodium Chloride 1,000 ml @ 100 mls/hr 1X ONCE IV Last administered on 14:37; Start 01/15/17 at 14:00; Stop 01/15/17 at 23:59; Status DC Docusate Sodium (Colace) 100 mg DAILY PO ; Start 01/15/17 at 16:00 Levothyroxine Sodium (Synthroid) 25 mcg DAILY07 PO ; Start 01/15/17 at 16:00; Stop 01/15/17 at 16:00; Status DC Losartan Potassium (Cozaar) 25 mg DAILY PO Last administered on 01/16/17 09:30 ; Start 01/15/17 at 16:00 Polyethylene Glycol (miraLAX PACKET) 17 gm HS PO Last administered on 21:32; Start 01/15/17 at 21:00 Raloxifene HCl (Evista) 60 mg DAILY PO Last administered on 01/16/17 09:29; Start 01/15/17 at 16:00 Sennosides (Senna) 8.6 mg DAILY PO ; Start 01/15/17 at 16:00 Artificial Tears (Artificial Tears) 1 drop PRN QID PRN OU DRY EYE; Start at 15:30 Metoprolol Succinate (Toprol Xl) 50 mg DAILY PO Last administered on 01/16/17 09:30; Start 01/15/17 at 16:00 Multivitamins (Thera M Plus) 1 tab DAILY PO Last administered on 01/16/17 09: 29; Start 01/15/17 at 16:00 Simvastatin (Zocor) 10 mg QHS PO Last administered on 01/16/17 21:32; Start 01/15/17 at 21:00 Sodium Chloride 1,000 ml @ 75 mls/hr [id number] IV Last administered on 10:10; Start 01/15/17 at 15:15 Enoxaparin Sodium (Lovenox 40mg Syringe) 40 mg DAILY16 SQ Last administered on 01/16/17 15:33; Start 01/15/17 at 16:00 Levothyroxine Sodium (Synthroid) 50 mcg DAILY07 PO Last administered on 07:36; Start 01/16/17 at 07:00 Info (Do NOT chart on this placeholder) 1 each PRN 1X PRN MC SEE COMMENTS; Start 01/15/17 at 17:00; Status UNV Influenza Virus Vaccine Quadrival (Fluarix Quad [id number] Syringe) 0.5 ml ONCE ONCE VAX IM Last administered on 01/15/17 17:42; Start 01/15/17 at 18:00; Stop 01/15/17 at 18:04; Status DC Levothyroxine Sodium (Synthroid) 50 mcg DAILY07 PO ; Start 01/16/17 at 14:00; Stop 01/16/17 at 14:10; Status DC Potassium Chloride (Klor-Con) 10 meq BIDWMEALS PO Last administered on 17:48; Start 01/16/17 at 17:00 Pantoprazole Sodium (Protonix) 40 mg DAILYAC PO Last administered on 01/17/17 07:36; Start 01/17/17 at 07:30 Pantoprazole Sodium (Protonix) 40 mg 1X ONCE PO Last administered on 15:33; Start 01/16/17 at 13:45; Stop 01/16/17 at 13:46; Status DC Diazepam (Valium) 5 mg 1X ONCE PO Last administered on 01/16/17 15:57; Start 01/16/17 at 15:30; Stop 01/16/17 at 15:46; Status DC Lidocaine (Lidoderm) 1 patch DAILY TD Last administered on 01/17/17 10:11; Start 01/16/17 at 16:00 Tramadol HCl (Ultram) 100 mg PRN Q6HRS PRN PO PAIN Last administered on 17:48; Start 01/16/17 at 16:00 Acetaminophen/ Codeine Phosphate (Tylenol #3) 1 tab PRN Q6HRS PRN PO PAIN; Start 01/16/17 at 16:00 Tamsulosin HCl (Flomax) 0.4 mg QHS PO Last administered on 01/16/17 21:32; Start 01/16/17 at 21:00 Ondansetron HCl (Zofran) 4 mg PRN Q6HRS PRN IV NAUSEA/VOMITING Last administered on 01/17/17 10:09; Start 01/17/17 at 09:45 Active Scripts Active Reported Keflex (Cephalexin) 500 Mg Capsule 1 Cap PO TID 7 Days Diflucan (Fluconazole) 100 Mg Tablet 50 Mg PO WEEKLY Levothyroxine Sodium 50 Mcg Tablet 1 Tab PO DAILY Refresh Optive Eye Drops (Carboxymethylcellulos/Glycerin) 15 Ml Drops 1 Drop EACHEYE QID Miralax (Polyethylene Glycol 3350) 17 Gm Powd.pack 1 Packet PO HS [oscal] Centrum Silver Tablet (Multivits-Min/Fa/Lycopene/Lut) 1 Each Tablet 1 Each PO DAILY Pravastatin Sodium 40 Mg Tablet 1 Tab PO DAILY Dexilant (Dexlansoprazole) 60 Mg Cap.mp 60 Mg PO Evista (Raloxifene Hcl) 60 Mg Tablet 1 Tab PO DAILY Losartan Potassium 25 Mg Tablet 25 Mg PO DAILY Toprol Xl (Metoprolol Succinate) 50 Mg Tab.er.24h 1 Tab PO DAILY Furosemide 40 Mg Tablet 40 Mg PO DAILY Klor-Con 10 (Potassium Chloride) 10 Meq Tablet.er 10 Tab PO BID Vitals/I & O Vital Sign - Last 24 Hours 01/16/17 01/16/17 01/16/17 01/16/17 11:29 15:18 17:48 18:48 Temp 97.7 98.6 97.7 98.6 Pulse 61 55 Resp 19 20 18 B/P (MAP) 152/52 (85) 152/54 (86) Pulse Ox 97 96 96 96 O2 Delivery Room Air Room Air Room Air Room Air 01/16/17 01/16/17 01/16/17 01/17/17 19:51 20:00 23:15 03:31 Temp 97.9 97.7 97.5 97.9 97.7 97.5 Pulse 59 57 68 Resp 16 16 16 B/P (MAP) 149/55 (86) 140/41 (74) 117/46 (69) Pulse Ox 93 93 97 O2 Delivery Room Air Room Air Room Air Room Air 01/17/17 07:14 Temp 98.4 98.4 Pulse 67 Resp 17 B/P (MAP) 108/54 (72) Pulse Ox 96 O2 Delivery Room Air Intake and Output 01/17/17 01/17/17 01/18/17 15:00 23:00 07:00 Intake Total 200 ml Balance 200 ml ROSIO KIMBLE MD Jan 17, 2017 10:20
[2017-01-17 11:04] VITALS: BP 151/55
[2017-01-17 14:45] VITALS: BP 176/49
[2017-01-17] MEDS: ENOXAPARIN 40 MG/0.4 ML SYRINGE. SQ SCH (15:32)
--- NOTE | 2017-01-17 16:34 | PDOC ---
PROGRESS NOTES Subjective Subjective patient seen and examined at 1515 c/o back pain Moves all extremities strength 4+/5 in upper and lower extremities sensation intact mild tenderness of lower lumbar spine on imaging studies- compression fractures of L3 and L4 without retropulsion, degenerative scoliosis, severe stenosis at L4-5 with her osteoporosis and degenerative scoliosis she is not a candidate for decompressive lumbar surgery vertebroplasty of L3, L4 considered full consult to follow Objective Objective Vital Signs Date Time Temp Pulse Resp B/P (MAP) Pulse Ox O2 Delivery O2 Flow Rate FiO2 01/17/17 14:45 98.9 65 18 176/49 (91) 98 Room Air 98.9 Intake and Output 01/18/17 07:00 Intake Total 400 ml Output Total 450 ml Balance -50 ml Intake Oral 400 ml Output Urine Total 450 ml Assessment Assessment Problems Medical Problems: (1) Diarrhea Status: Acute Comment Review of Relevant I have reviewed the following items zara (where applicable) has been applied. Labs Laboratory Tests Test 01/15/17 22:27 01/16/17 05:35 01/17/17 03:20 Clostridium difficile Toxin (PCR) Negative (Negative) White Blood Count 4.0 x10^3/uL (4.0-11.0) Red Blood Count 3.17 x10^6/uL (3.50-5.40) Hemoglobin 10.4 g/dL (12.0-15.5) Hematocrit 29.4 % (36.0-47.0) Mean Corpuscular Volume 93 fL (79-100) Mean Corpuscular Hemoglobin 33 pg (25-35) Mean Corpuscular Hemoglobin Concent 35 g/dL (31-37) Red Cell Distribution Width 13.3 % (11.5-14.5) Platelet Count 188 x10^3/uL (140-400) Neutrophils (%) (Auto) 71 % (31-73) Lymphocytes (%) (Auto) 14 % (24-48) Monocytes (%) (Auto) 13 % (0-9) Eosinophils (%) (Auto) 1 % (0-3) Basophils (%) (Auto) 1 % (0-3) Neutrophils # (Auto) 2.9 x10^3uL (1.8-7.7) Lymphocytes # (Auto) 0.6 x10^3/uL (1.0-4.8) Monocytes # (Auto) 0.5 x10^3/uL (0.0-1.1) Eosinophils # (Auto) 0.0 x10^3/uL (0.0-0.7) Basophils # (Auto) 0.0 x10^3/uL (0.0-0.2) Sodium Level 138 mmol/L (136-145) 135 mmol/L (136-145) Potassium Level 3.4 mmol/L (3.5-5.1) 3.5 mmol/L (3.5-5.1) Chloride Level 104 mmol/L (98-107) 102 mmol/L (98-107) Carbon Dioxide Level 26 mmol/L (21-32) 26 mmol/L (21-32) Anion Gap 8 (6-14) 7 (6-14) Blood Urea Nitrogen 6 mg/dL (7-20) 5 mg/dL (7-20) Creatinine 0.4 mg/dL (0.6-1.0) 0.4 mg/dL (0.6-1.0) Estimated GFR (Cockcroft-Gault) 183.6 183.6 Glucose Level 79 mg/dL (70-99) 98 mg/dL (70-99) Calcium Level 7.9 mg/dL (8.5-10.1) 7.8 mg/dL (8.5-10.1) Thyroid Stimulating Hormone (TSH) 5.178 uIU/mL (0.358-3.74) Laboratory Tests Test 01/17/17 03:20 Sodium Level 135 mmol/L (136-145) Potassium Level 3.5 mmol/L (3.5-5.1) Chloride Level 102 mmol/L (98-107) Carbon Dioxide Level 26 mmol/L (21-32) Anion Gap 7 (6-14) Blood Urea Nitrogen 5 mg/dL (7-20) Creatinine 0.4 mg/dL (0.6-1.0) Estimated GFR (Cockcroft-Gault) 183.6 Glucose Level 98 mg/dL (70-99) Calcium Level 7.8 mg/dL (8.5-10.1) Medications Current Medications Fentanyl Citrate (Fentanyl 2ml Vial) 25 mcg PRN Q15MIN PRN IV PAIN Last administered on 01/15/17t 10:42; Start 01/15/17 at 10:30 Sodium Chloride 1,000 ml @ 1,000 mls/hr 1X ONCE IV Last administered on 10:40; Start 01/15/17 at 10:30; Stop 01/15/17 at 11:29; Status DC Ondansetron HCl (Zofran) 4 mg 1X ONCE IV Last administered on 01/15/17 11:06 ; Start 01/15/17 at 10:45; Stop 01/15/17 at 10:46; Status DC Levothyroxine Sodium (Synthroid) 50 mcg 1X ONCE PO Last administered on 11:07; Start 01/15/17 at 10:45; Stop 01/15/17 at 10:46; Status DC Metoprolol Succinate (Toprol Xl) 50 mg 1X ONCE PO Last administered on 11:08; Start 01/15/17 at 10:45; Stop 01/15/17 at 10:46; Status DC Cephalexin HCl (Keflex) 500 mg 1X ONCE PO Last administered on 01/15/17 11:07 ; Start 01/15/17 at 10:45; Stop 01/15/17 at 10:46; Status DC Fentanyl Citrate (Fentanyl 2ml Vial) 50 mcg PRN Q2HR PRN IV PAIN Last administered on 01/16/17 05:41; Start 01/15/17 at 14:00; Stop 01/16/17 at 13:59 ; Status DC Sodium Chloride 1,000 ml @ 100 mls/hr 1X ONCE IV Last administered on 14:37; Start 01/15/17 at 14:00; Stop 01/15/17 at 23:59; Status DC Docusate Sodium (Colace) 100 mg DAILY PO ; Start 01/15/17 at 16:00 Levothyroxine Sodium (Synthroid) 25 mcg DAILY07 PO ; Start 01/15/17 at 16:00; Stop 01/15/17 at 16:00; Status DC Losartan Potassium (Cozaar) 25 mg DAILY PO Last administered on 01/16/17 09:30 ; Start 01/15/17 at 16:00 Polyethylene Glycol (miraLAX PACKET) 17 gm HS PO Last administered on 21:32; Start 01/15/17 at 21:00 Raloxifene HCl (Evista) 60 mg DAILY PO Last administered on 01/16/17 09:29; Start 01/15/17 at 16:00 Sennosides (Senna) 8.6 mg DAILY PO ; Start 01/15/17 at 16:00 Artificial Tears (Artificial Tears) 1 drop PRN QID PRN OU DRY EYE; Start at 15:30 Metoprolol Succinate (Toprol Xl) 50 mg DAILY PO Last administered on 01/16/17 09:30; Start 01/15/17 at 16:00 Multivitamins (Thera M Plus) 1 tab DAILY PO Last administered on 01/16/17 09: 29; Start 01/15/17 at 16:00 Simvastatin (Zocor) 10 mg QHS PO Last administered on 01/16/17 21:32; Start 01/15/17 at 21:00 Sodium Chloride 1,000 ml @ 75 mls/hr [id number] IV Last administered on 10:10; Start 01/15/17 at 15:15 Enoxaparin Sodium (Lovenox 40mg Syringe) 40 mg DAILY16 SQ Last administered on 01/16/17 15:33; Start 01/15/17 at 16:00 Levothyroxine Sodium (Synthroid) 50 mcg DAILY07 PO Last administered on 07:36; Start 01/16/17 at 07:00 Info (Do NOT chart on this placeholder) 1 each PRN 1X PRN MC SEE COMMENTS; Start 01/15/17 at 17:00; Status UNV Influenza Virus Vaccine Quadrival (Fluarix Quad [id number] Syringe) 0.5 ml ONCE ONCE VAX IM Last administered on 01/15/17 17:42; Start 01/15/17 at 18:00; Stop 01/15/17 at 18:04; Status DC Levothyroxine Sodium (Synthroid) 50 mcg DAILY07 PO ; Start 01/16/17 at 14:00; Stop 01/16/17 at 14:10; Status DC Potassium Chloride (Klor-Con) 10 meq BIDWMEALS PO Last administered on 17:48; Start 01/16/17 at 17:00 Pantoprazole Sodium (Protonix) 40 mg DAILYAC PO Last administered on 01/17/17 07:36; Start 01/17/17 at 07:30 Pantoprazole Sodium (Protonix) 40 mg 1X ONCE PO Last administered on 15:33; Start 01/16/17 at 13:45; Stop 01/16/17 at 13:46; Status DC Diazepam (Valium) 5 mg 1X ONCE PO Last administered on 01/16/17 15:57; Start 01/16/17 at 15:30; Stop 01/16/17 at 15:46; Status DC Lidocaine (Lidoderm) 1 patch DAILY TD Last administered on 01/17/17 10:11; Start 01/16/17 at 16:00 Tramadol HCl (Ultram) 100 mg PRN Q6HRS PRN PO PAIN Last administered on 17:48; Start 01/16/17 at 16:00 Acetaminophen/ Codeine Phosphate (Tylenol #3) 1 tab PRN Q6HRS PRN PO PAIN; Start 01/16/17 at 16:00 Tamsulosin HCl (Flomax) 0.4 mg QHS PO Last administered on 01/16/17 21:32; Start 01/16/17 at 21:00 Ondansetron HCl (Zofran) 4 mg PRN Q6HRS PRN IV NAUSEA/VOMITING Last administered on 01/17/17 10:09; Start 01/17/17 at 09:45 Active Scripts Active Reported Keflex (Cephalexin) 500 Mg Capsule 1 Cap PO TID 7 Days Diflucan (Fluconazole) 100 Mg Tablet 50 Mg PO WEEKLY Levothyroxine Sodium 50 Mcg Tablet 1 Tab PO DAILY Refresh Optive Eye Drops (Carboxymethylcellulos/Glycerin) 15 Ml Drops 1 Drop EACHEYE QID Miralax (Polyethylene Glycol 3350) 17 Gm Powd.pack 1 Packet PO HS [oscal] Centrum Silver Tablet (Multivits-Min/Fa/Lycopene/Lut) 1 Each Tablet 1 Each PO DAILY Pravastatin Sodium 40 Mg Tablet 1 Tab PO DAILY Dexilant (Dexlansoprazole) 60 Mg Capmp 60 Mg PO Evista (Raloxifene Hcl) 60 Mg Tablet 1 Tab PO DAILY Losartan Potassium 25 Mg Tablet 25 Mg PO DAILY Toprol Xl (Metoprolol Succinate) 50 Mg Tab.er.24h 1 Tab PO DAILY Furosemide 40 Mg Tablet 40 Mg PO DAILY Klor-Con 10 (Potassium Chloride) 10 Meq Tablet.er 10 Tab PO BID Vitals/I & O Vital Sign - Last 24 Hours 01/16/17 01/16/17 01/16/17 01/16/17 17:48 18:48 19:51 20:00 Temp 97.9 97.9 Pulse 59 Resp 18 16 B/P (MAP) 149/55 (86) Pulse Ox 96 96 93 O2 Delivery Room Air Room Air Room Air Room Air 01/16/17 01/17/17 01/17/17 01/17/17 23:15 03:31 07:14 09:00 Temp 97.7 97.5 98.4 97.7 97.5 98.4 Pulse 57 68 67 67 Resp 16 16 17 B/P (MAP) 140/41 (74) 117/46 (69) 108/54 (72) 108/54 Pulse Ox 93 97 96 O2 Delivery Room Air Room Air Room Air 01/17/17 01/17/17 01/17/17 09:00 11:04 14:45 Temp 98.5 98.9 98.5 98.9 Pulse 67 66 65 Resp 20 18 B/P (MAP) 108/54 151/55 (87) 176/49 (91) Pulse Ox 97 98 O2 Delivery Room Air Room Air Intake and Output 01/17/17 01/17/17 01/18/17 15:00 23:00 07:00 Intake Total 400 ml Output Total 450 ml Balance 400 ml -450 ml ROYER CASTILLO MD Jan 17, 2017 16:34
[2017-01-17] MEDS ORDERED: POTASSIUM CHLORIDE 10 MEQ TABLET.ER. PO ONE (18:00)
[2017-01-17 19:43] VITALS: BP 163/49
[2017-01-17] MEDS: TAMSULOSIN 0.4 MG CAP.ER.24H. PO SCH (20:43)
[2017-01-17] MEDS: SIMVASTATIN 10 MG TABLET PO SCH (20:44)
[2017-01-17] MEDS: POLYETHYLENE GLYCOL 3350 17 GM PACKET. PO SCH (20:44)
[2017-01-17 23:10] VITALS: BP 165/67
[2017-01-18] VITALS (7 sets, daily range): BP systolic 137–174; BP diastolic 53–79
[2017-01-18 04:18] LABS: INR 1.1 (0.8-1.1); PROTHROMBIN TIME PATIENT 13.5 SEC (11.7-14.0)
[2017-01-18] MEDS: PANTOPRAZOLE 40 MG TABLET.DR. PO SCH (05:15)
[2017-01-18] MEDS: LEVOTHYROXINE 50 MCG TABLET PO SCH (05:15)
[2017-01-18] MEDS: LIDOCAINE (700MG/PATCH) PATCH. TD SCH (05:16)
[2017-01-18] MEDS ORDERED: POTASSIUM CHLORIDE 10 MEQ TABLET.ER. PO ONE (09:00)
[2017-01-18] MEDS: DOCUSATE SODIUM 100 MG CAPSULE. PO SCH (09:02)
[2017-01-18] MEDS: MULTIVITAMIN with MINERAL TABLET. PO SCH (09:02)
[2017-01-18] MEDS: SENNOSIDES 8.6 MG TABLET PO SCH (09:03)
[2017-01-18] MEDS: RALOXIFENE 60 MG TABLET. PO SCH (09:04)
[2017-01-18] MEDS: LOSARTAN POTASSIUM 25 MG TABLET. PO SCH (09:04)
[2017-01-18] MEDS: METOPROLOL SUCC 24HR ER 50 MG TAB.ER.24H. PO SCH (09:04)
[2017-01-18] MEDS: POTASSIUM CHLORIDE 10 MEQ TABLET.ER. PO SCH ×2 (09:04→17:40)
--- NOTE | 2017-01-18 09:37 | PDOC ---
PROGRESS NOTES Subjective Subjective smiling today ,less pain Objective Objective Vital Signs Date Time Temp Pulse Resp B/P (MAP) Pulse Ox O2 Delivery O2 Flow Rate FiO2 01/18/17 09:04 68 166/62 01/18/17 07:22 98.3 17 97 Room Air 98.3 Intake and Output 01/19/17 07:00 Intake Total 440 ml Output Total 900 ml Balance -460 ml Intake Oral 440 ml Output Urine Total 900 ml Physical Exam Abdomen: Normal bowel sounds, Soft Heart: Regular rate, Normal S1, Normal S2 Extremities: No clubbing General: Alert HEENT: Atraumatic Lungs: Clear to auscultation MUSCULOSKELETAL: No swelling Neck: Supple Neuro: Normal speech Psych/Mental Status: Mental status NL Skin: No breakdown Diagnosis Problem List Problems Medical Problems: (1) Diarrhea Status: Acute Assessment Assessment Problems Medical Problems: (1) Diarrhea Status: Acute FINAL IMPRESSION: 1. Abdominal pain. 2. Hyponatremia. 3. Diarrhea, probably secondary to laxatives including mag citrate. 4. Hypothyroidism. 5. Osteoporosis with acute compression fractures L3,4. 6. Gastroesophageal reflux disease, irritable bowel syndrome. PLAN: spoke with pt and family daughter, agreeable for vertebroplasty today. C diff neg MRI lumbar spine showed compression fractures L3 and L4. Nausea and vomiting try Zofran, ct abd and pelvis 3 days ago neg Na 135 improved,pot 3.5 Vertebroplasty? We will get PT/OT. Dr. Villafana from rehab and further recommendations to follow. lotrisone cream for vaginal itching Problems: Plan Plan of Care Problems Medical Problems: (1) Diarrhea Status: Acute Comment Review of Relevant I have reviewed the following items zara (where applicable) has been applied. Labs Laboratory Tests Test 01/18/17 03:55 Prothrombin Time 13.5 SEC (11.7-14.0) Prothromb Time International Ratio 1.1 (0.8-1.1) Medications Current Medications Ondansetron HCl (Zofran) 4 mg PRN Q6HRS PRN IV NAUSEA/VOMITING Last administered on 01/17/17t 10:09; Start 01/17/17 at 09:45 Vitals/I & O Vital Sign - Last 24 Hours 01/17/17 01/17/17 01/17/17 01/17/17 11:04 14:45 19:43 23:10 Temp 98.5 98.9 98.1 98.2 98.5 98.9 98.1 98.2 Pulse 66 65 72 71 Resp 20 18 16 16 B/P (MAP) 151/55 (87) 176/49 (91) 163/49 (87) 165/67 (99) Pulse Ox 97 98 94 95 O2 Delivery Room Air Room Air Room Air Room Air 01/18/17 01/18/17 01/18/17 01/18/17 03:11 07:22 09:04 09:04 Temp 98.2 98.3 98.2 98.3 Pulse 67 68 68 68 Resp 18 17 B/P (MAP) 137/53 (81) 166/62 (96) 166/62 166/62 Pulse Ox 96 97 O2 Delivery Room Air Room Air Intake and Output 01/18/17 01/18/17 01/19/17 15:00 23:00 07:00 Intake Total 440 ml Output Total 900 ml Balance -460 ml NIKKI FOX MD Jan 18, 2017 09:37
[2017-01-18] MEDS ORDERED: FLUCONAZOLE 100 MG TABLET. PO ONE (09:45)
[2017-01-18] MEDS: CLOTRIMAZOLE/BETAMETH 1%-0.05% TOPICAL CREAM 15GM TUBE. TP SCH ×2 (09:45→21:00)
--- NOTE | 2017-01-18 09:51 | PDOC ---
PROGRESS NOTES Subjective Subjective She feels better but continues with low back pain with movement. Objective Objective Vital Signs Date Time Temp Pulse Resp B/P (MAP) Pulse Ox O2 Delivery O2 Flow Rate FiO2 01/18/17 09:04 68 166/62 01/18/17 07:22 98.3 17 97 Room Air 98.3 Intake and Output 01/19/17 07:00 Intake Total 440 ml Output Total 900 ml Balance -460 ml Intake Oral 440 ml Output Urine Total 900 ml Physical Exam Physical Exam She is supine in bed and does not seem to be in any acute distress but continues with painfully limited lumbar spine ROM. Assessment Assessment Problems Medical Problems: (1) Diarrhea Status: Acute Plan Plan of Care I spoke yo her daughter and son in law at bedside and explained to them about kyphoplasty which is to be done later on today after she talks to . Comment Review of Relevant I have reviewed the following items zara (where applicable) has been applied. Labs Laboratory Tests Test 01/17/17 03:20 01/18/17 03:55 Sodium Level 135 mmol/L (136-145) Potassium Level 3.5 mmol/L (3.5-5.1) Chloride Level 102 mmol/L (98-107) Carbon Dioxide Level 26 mmol/L (21-32) Anion Gap 7 (6-14) Blood Urea Nitrogen 5 mg/dL (7-20) Creatinine 0.4 mg/dL (0.6-1.0) Estimated GFR (Cockcroft-Gault) 183.6 Glucose Level 98 mg/dL (70-99) Calcium Level 7.8 mg/dL (8.5-10.1) Prothrombin Time 13.5 SEC (11.7-14.0) Prothromb Time International Ratio 1.1 (0.8-1.1) Laboratory Tests Test 01/18/17 03:55 Prothrombin Time 13.5 SEC (11.7-14.0) Prothromb Time International Ratio 1.1 (0.8-1.1) Medications Current Medications Fentanyl Citrate (Fentanyl 2ml Vial) 25 mcg PRN Q15MIN PRN IV PAIN Last administered on 01/15/17 10:42; Start 01/15/17 at 10:30 Sodium Chloride 1,000 ml @ 1,000 mls/hr 1X ONCE IV Last administered on 10/2/ 17at 10:40; Start 01/15/17 at 10:30; Stop 01/15/17 at 11:29; Status DC Ondansetron HCl (Zofran) 4 mg 1X ONCE IV Last administered on 01/15/17 11:06 ; Start 01/15/17 at 10:45; Stop 01/15/17 at 10:46; Status DC Levothyroxine Sodium (Synthroid) 50 mcg 1X ONCE PO Last administered on 11:07; Start 01/15/17 at 10:45; Stop 01/15/17 at 10:46; Status DC Metoprolol Succinate (Toprol Xl) 50 mg 1X ONCE PO Last administered on 11:08; Start 01/15/17 at 10:45; Stop 01/15/17 at 10:46; Status DC Cephalexin HCl (Keflex) 500 mg 1X ONCE PO Last administered on 01/15/17 11:07 ; Start 01/15/17 at 10:45; Stop 01/15/17 at 10:46; Status DC Fentanyl Citrate (Fentanyl 2ml Vial) 50 mcg PRN Q2HR PRN IV PAIN Last administered on 01/16/17 05:41; Start 01/15/17 at 14:00; Stop 01/16/17 at 13:59 ; Status DC Sodium Chloride 1,000 ml @ 100 mls/hr 1X ONCE IV Last administered on 14:37; Start 01/15/17 at 14:00; Stop 01/15/17 at 23:59; Status DC Docusate Sodium (Colace) 100 mg DAILY PO Last administered on 01/18/17 09:02; Start 01/15/17 at 16:00 Levothyroxine Sodium (Synthroid) 25 mcg DAILY07 PO ; Start 01/15/17 at 16:00; Stop 01/15/17 at 16:00; Status DC Losartan Potassium (Cozaar) 25 mg DAILY PO Last administered on 01/18/17 09:04 ; Start 01/15/17 at 16:00 Polyethylene Glycol (miraLAX PACKET) 17 gm HS PO Last administered on 20:44; Start 01/15/17 at 21:00 Raloxifene HCl (Evista) 60 mg DAILY PO Last administered on 01/18/17 09:04; Start 01/15/17 at 16:00 Sennosides (Senna) 8.6 mg DAILY PO Last administered on 01/18/17 09:03; Start 01/15/17 at 16:00 Artificial Tears (Artificial Tears) 1 drop PRN QID PRN OU DRY EYE; Start at 15:30 Metoprolol Succinate (Toprol Xl) 50 mg DAILY PO Last administered on 01/18/17 09:04; Start 01/15/17 at 16:00 Multivitamins (Thera M Plus) 1 tab DAILY PO Last administered on 01/18/17 09: 02; Start 01/15/17 at 16:00 Simvastatin (Zocor) 10 mg QHS PO Last administered on 01/17/17 20:44; Start 01/15/17 at 21:00 Sodium Chloride 1,000 ml @ 75 mls/hr [id number] IV Last administered on 22:35; Start 01/15/17 at 15:15; Stop 01/18/17 at 09:34; Status DC Enoxaparin Sodium (Lovenox 40mg Syringe) 40 mg DAILY16 SQ Last administered on 01/16/17 15:33; Start 01/15/17 at 16:00; Stop 01/18/17 at 09:34; Status DC Levothyroxine Sodium (Synthroid) 50 mcg DAILY07 PO Last administered on 05:15; Start 01/16/17 at 07:00 Info (Do NOT chart on this placeholder) 1 each PRN 1X PRN MC SEE COMMENTS; Start 01/15/17 at 17:00; Status UNV Influenza Virus Vaccine Quadrival (Fluarix Quad [id number] Syringe) 0.5 ml ONCE ONCE VAX IM Last administered on 01/15/17 17:42; Start 01/15/17 at 18:00; Stop 01/15/17 at 18:04; Status DC Levothyroxine Sodium (Synthroid) 50 mcg DAILY07 PO ; Start 01/16/17 at 14:00; Stop 01/16/17 at 14:10; Status DC Potassium Chloride (Klor-Con) 10 meq BIDWMEALS PO Last administered on 09:04; Start 01/16/17 at 17:00 Pantoprazole Sodium (Protonix) 40 mg DAILYAC PO Last administered on 01/18/17 05:15; Start 01/17/17 at 07:30 Pantoprazole Sodium (Protonix) 40 mg 1X ONCE PO Last administered on 15:33; Start 01/16/17 at 13:45; Stop 01/16/17 at 13:46; Status DC Diazepam (Valium) 5 mg 1X ONCE PO Last administered on 01/16/17 15:57; Start 01/16/17 at 15:30; Stop 01/16/17 at 15:46; Status DC Lidocaine (Lidoderm) 1 patch DAILY TD Last administered on 01/18/17 05:16; Start 01/16/17 at 16:00 Tramadol HCl (Ultram) 100 mg PRN Q6HRS PRN PO PAIN Last administered on 17:48; Start 01/16/17 at 16:00 Acetaminophen/ Codeine Phosphate (Tylenol #3) 1 tab PRN Q6HRS PRN PO PAIN; Start 01/16/17 at 16:00 Tamsulosin HCl (Flomax) 0.4 mg QHS PO Last administered on 01/17/17 20:43; Start 01/16/17 at 21:00 Ondansetron HCl (Zofran) 4 mg PRN Q6HRS PRN IV NAUSEA/VOMITING Last administered on 01/17/17 10:09; Start 01/17/17 at 09:45 Fluconazole (Diflucan) 100 mg DAILY PO ; Start 01/19/17 at 09:00 Fluconazole (Diflucan) 100 mg 1X ONCE PO ; Start 01/18/17 at 09:45; Stop at 09:46; Status DC Betamethasone/ Clotrimazole (Lotrisone) 1 patrick BID TP ; Start 01/18/17 at 09:45 Active Scripts Active Reported Keflex (Cephalexin) 500 Mg Capsule 1 Cap PO TID 7 Days Diflucan (Fluconazole) 100 Mg Tablet 50 Mg PO WEEKLY Levothyroxine Sodium 50 Mcg Tablet 1 Tab PO DAILY Refresh Optive Eye Drops (Carboxymethylcellulos/Glycerin) 15 Ml Drops 1 Drop EACHEYE QID Miralax (Polyethylene Glycol 3350) 17 Gm Powd.pack 1 Packet PO HS [oscal] Centrum Silver Tablet (Multivits-Min/Fa/Lycopene/Lut) 1 Each Tablet 1 Each PO DAILY Pravastatin Sodium 40 Mg Tablet 1 Tab PO DAILY Dexilant (Dexlansoprazole) 60 Mg mp 60 Mg PO Evista (Raloxifene Hcl) 60 Mg Tablet 1 Tab PO DAILY Losartan Potassium 25 Mg Tablet 25 Mg PO DAILY Toprol Xl (Metoprolol Succinate) 50 Mg Tab.er.24h 1 Tab PO DAILY Furosemide 40 Mg Tablet 40 Mg PO DAILY Klor-Con 10 (Potassium Chloride) 10 Meq Tablet.er 10 Tab PO BID Vitals/I & O Vital Sign - Last 24 Hours 01/17/17 01/17/17 01/17/17 01/17/17 11:04 14:45 19:43 23:10 Temp 98.5 98.9 98.1 98.2 98.5 98.9 98.1 98.2 Pulse 66 65 72 71 Resp 20 18 16 16 B/P (MAP) 151/55 (87) 176/49 (91) 163/49 (87) 165/67 (99) Pulse Ox 97 98 94 95 O2 Delivery Room Air Room Air Room Air Room Air 01/18/17 01/18/17 01/18/17 01/18/17 03:11 07:22 09:04 09:04 Temp 98.2 98.3 98.2 98.3 Pulse 67 68 68 68 Resp 18 17 B/P (MAP) 137/53 (81) 166/62 (96) 166/62 166/62 Pulse Ox 96 97 O2 Delivery Room Air Room Air Intake and Output 01/18/17 01/18/17 01/19/17 15:00 23:00 07:00 Intake Total 440 ml Output Total 900 ml Balance -460 ml ROSIO KIMBLE MD Jan 18, 2017 09:51
[2017-01-18] MEDS ORDERED: IOHEXOL 300 MG/ML 50 ML VIAL. ONE (13:32)
[2017-01-18] MEDS ORDERED: LIDOCAINE 1% / SOD BICARB 8.4% 20 ML VIAL. IJ ONE ×2 (13:32→15:00)
[2017-01-18] MEDS ORDERED: MIDAZOLAM HCL/PF 2 MG/2 ML VIAL. ONE (14:51)
[2017-01-18] MEDS ORDERED: diphenhydrAMINE 50 MG/ML VIAL ONE (14:58)
[2017-01-18] MEDS ORDERED: IOHEXOL 300 MG/ML 50 ML VIAL. IART ONE (15:00)
[2017-01-18] MEDS ORDERED: fentaNYL PF VIAL 100 MCG/2 ML VIAL IV ONE (15:00)
[2017-01-18] MEDS ORDERED: NALOXONE 0.4 MG/ML VIAL. ONE (15:17)
[2017-01-18] MEDS ORDERED: FLUMAZENIL 0.5 MG/5 ML VIAL. IV ONE (15:17)
[2017-01-18] MEDS ORDERED: diphenhydrAMINE 50 MG/ML VIAL IVP ONE (15:30)
[2017-01-18] MEDS ORDERED: fentaNYL PF VIAL 100 MCG/2 ML VIAL ONE (15:39)
--- NOTE | 2017-01-18 16:05 | PDOC1 ---
IR Pre-Procedure H&P H&P Update L3 and L4 acute insufficiency compression fractures confirmed on MRI. Otherwise , no significant change from Dr. Rodas admit H&P done 01/16/17. JOESPH MA MD Jan 18, 2017 16:05
--- NOTE | 2017-01-18 16:17 | PDOC ---
Exam Prevention Rn Prevention Rn Randall Detailer Detailer None Pre-Procedure Diagnosis Pre-Procedure Diagnosis L3 and L4 insufficiency compression fractures Post-Procedure Diagnosis Post-Procedure Diagnosis Same Procedure Performed Procedure Performed L3 and L4 kyphoplasty Type of Anesthesia Type of Anesthesia Moderate Estimated Blood Loss EBL: 10 cc Specimens Specimans None Drain/Tubes Drains/Tubes None Condition of Patient Condition of Patient Stable JOESPH MA MD Jan 18, 2017 16:17
--- NOTE | 2017-01-18 16:43 | RAD ---
PROCEDURES: 1. L3 and L4 transpedicular kyphoplasty The procedure, risks, and complications, to include bleeding, infection, cement embolization, compression of the spinal canal and cement extrusion were explained to the patient and they understood and wished to proceed. Consent form signed. The back was prepped and draped using maximal sterile technique and 1% Xylocaine used for local topical anesthesia and deep periosteal anesthesia. Utilizing careful fluoroscopic biplane positioning, the L3 pedicles were identified. Using a left transpedicular approach, a trocar needle into the posterior aspect of the L3 vertebral body. Using curved needle technique, the kyphoplasty balloon was advanced across midline in the L3 vertebral body. Kyphoplasty was then performed under fluoroscopic guidance. Balloon was deflated and carefully removed. Utilizing careful fluoroscopic biplane positioning, the L4 pedicles were identified. Using a right transpedicular approach, a trocar needle into the posterior aspect of the L4 vertebral body. Using curved needle technique, the kyphoplasty balloon was advanced across midline in the L4 vertebral body. Kyphoplasty was then performed under fluoroscopic guidance. Balloon was deflated and carefully removed. Cement injection was first performed at the L3 level. Under very careful biplane fluoroscopic guidance, curved cement needle was advanced across the L3 midline. Polymethylmethacrylate was carefully injected into the vertebral body filling the the site of the compression fracture. Cement injection was then performed at the L4 level. Under very careful biplane fluoroscopic guidance, curved cement needle was advanced across the L4 midline. Polymethylmethacrylate was carefully injected into the vertebral body filling the the site of the compression fracture. Following the cement injections, the needles were removed, pressure placed, and hemostasis obtained. The patient tolerated the procedure well and returned to the floor in stable condition. Sedation: Conscious sedation for 58 minutes. Intravenous versed and fentanyl were given and the patient was monitored by the nurses in attendance. Complications: None. Antibiotics: 2 g Ancef Fluoroscopy time: 20.5 minutes DAP: 3525.4 uGycm2 IMPRESSION: 1. Fluoroscopy-guided percutaneous transpedicular L3 and L4 kyphoplasties.
[2017-01-18] MEDS: traMADol 50 MG TABLET PO PRN (17:41)
[2017-01-18] MEDS: ONDANSETRON PF 4 MG/2 ML VIAL. IV PRN (20:31)
[2017-01-18] MEDS: SIMVASTATIN 10 MG TABLET PO SCH (20:32)
[2017-01-18] MEDS: POLYETHYLENE GLYCOL 3350 17 GM PACKET. PO SCH (20:32)
[2017-01-18] MEDS: TAMSULOSIN 0.4 MG CAP.ER.24H. PO SCH (20:32)
[2017-01-19] VITALS (7 sets, daily range): BP systolic 141–197; BP diastolic 41–76
[2017-01-19 06:32] LABS: BASO % 0 % (0-3); EOS % 0 % (0-3); HEMATOCRIT 33.6 % (36.0-47.0); HEMOGLOBIN 11.4 g/dL (12.0-15.5); LYMPH # 0.6 x10^3/uL (1.0-4.8); LYMPH % 7 % (24-48); MEAN CORPUSCULAR HEMOGLOBIN 32 pg (25-35); MEAN CORPUSCULAR HGB CONC 34 g/dL (31-37); MEAN CORPUSCULAR VOLUME 95 fL (79-100); MONO % 9 % (0-9); NEUT % 83 % (31-73); PLATELET COUNT 217 x10^3/uL (140-400); RED BLOOD COUNT 3.54 x10^6/uL (3.50-5.40); RED CELL DISTRIBUTION WIDTH 13.2 % (11.5-14.5); WHITE BLOOD COUNT 8.1 x10^3/uL (4.0-11.0)
[2017-01-19 06:42] LABS: CALCIUM 8.7 mg/dL (8.5-10.1); CREATININE 0.3 mg/dL (0.6-1.0); GFR 255.8; POTASSIUM 3.6 mmol/L (3.5-5.1)
[2017-01-19] MEDS: LEVOTHYROXINE 50 MCG TABLET PO SCH (07:15)
[2017-01-19] MEDS: ONDANSETRON PF 4 MG/2 ML VIAL. IV PRN (07:26)
[2017-01-19] MEDS: METOPROLOL SUCC 24HR ER 50 MG TAB.ER.24H. PO SCH (08:54)
[2017-01-19] MEDS: MULTIVITAMIN with MINERAL TABLET. PO SCH (08:55)
[2017-01-19] MEDS: PANTOPRAZOLE 40 MG TABLET.DR. PO SCH (08:55)
[2017-01-19] MEDS: POTASSIUM CHLORIDE 10 MEQ TABLET.ER. PO SCH ×2 (08:55→17:50)
[2017-01-19] MEDS: LOSARTAN POTASSIUM 25 MG TABLET. PO SCH (08:55)
[2017-01-19] MEDS: SENNOSIDES 8.6 MG TABLET PO SCH (08:56)
[2017-01-19] MEDS: FLUCONAZOLE 100 MG TABLET. PO SCH (08:56)
[2017-01-19] MEDS: RALOXIFENE 60 MG TABLET. PO SCH (08:56)
[2017-01-19] MEDS: DOCUSATE SODIUM 100 MG CAPSULE. PO SCH (08:57)
[2017-01-19] MEDS: CLOTRIMAZOLE/BETAMETH 1%-0.05% TOPICAL CREAM 15GM TUBE. TP SCH ×2 (08:59→21:00)
[2017-01-19] MEDS: LIDOCAINE (700MG/PATCH) PATCH. TD SCH (08:59)
--- NOTE | 2017-01-19 09:50 | PDOC ---
PROGRESS NOTES Subjective Subjective confused last night ,feels better today Objective Objective Vital Signs Date Time Temp Pulse Resp B/P (MAP) Pulse Ox O2 Delivery O2 Flow Rate FiO2 01/19/17 08:55 95 160/53 01/19/17 08:00 Room Air 01/19/17 06:50 98.2 17 96 98.2 Intake and Output 01/20/17 07:00 Output Total 200 ml Balance -200 ml Output Urine Total 200 ml Physical Exam Abdomen: Normal bowel sounds, Soft Heart: Regular rate, Normal S1, Normal S2 Extremities: No clubbing General: Alert HEENT: Atraumatic Lungs: Clear to auscultation MUSCULOSKELETAL: No swelling Neck: Supple Neuro: Normal speech Psych/Mental Status: Mental status NL Skin: No breakdown Diagnosis Problem List Problems Medical Problems: (1) Diarrhea Status: Acute Assessment Assessment Problems Medical Problems: (1) Diarrhea Status: Acute FINAL IMPRESSION: compression fracture L3 and L4,osteoporotic 1. Abdominal pain. 2. Hyponatremia. 3. Diarrhea, probably secondary to laxatives including mag citrate. 4. Hypothyroidism. 5. Osteoporosis with acute compression fractures L3,4. 6. Gastroesophageal reflux disease, irritable bowel syndrome. PLAN: Procedure Performed Procedure Performed 01/18/17 L3 and L4 kyphoplasty spoke with pt and family daughter, agreeable to go back to assisted care facility sunday. will ambulate and do pt/ot C diff neg MRI lumbar spine showed compression fractures L3 and L4. Nausea and vomiting try Zofran, ct abd and pelvis 3 days ago neg Na 135 improved,pot 3.6 We will get PT/OT. recommendations to follow. lotrisone cream for vaginal itching Problems: Plan Plan of Care Problems Medical Problems: (1) Diarrhea Status: Acute Comment Review of Relevant I have reviewed the following items zara (where applicable) has been applied. Labs Laboratory Tests Test 01/19/17 05:40 White Blood Count 8.1 x10^3/uL (4.0-11.0) Red Blood Count 3.54 x10^6/uL (3.50-5.40) Hemoglobin 11.4 g/dL (12.0-15.5) Hematocrit 33.6 % (36.0-47.0) Mean Corpuscular Volume 95 fL (79-100) Mean Corpuscular Hemoglobin 32 pg (25-35) Mean Corpuscular Hemoglobin Concent 34 g/dL (31-37) Red Cell Distribution Width 13.2 % (11.5-14.5) Platelet Count 217 x10^3/uL (140-400) Neutrophils (%) (Auto) 83 % (31-73) Lymphocytes (%) (Auto) 7 % (24-48) Monocytes (%) (Auto) 9 % (0-9) Eosinophils (%) (Auto) 0 % (0-3) Basophils (%) (Auto) 0 % (0-3) Neutrophils # (Auto) 6.7 x10^3uL (1.8-7.7) Lymphocytes # (Auto) 0.6 x10^3/uL (1.0-4.8) Monocytes # (Auto) 0.7 x10^3/uL (0.0-1.1) Eosinophils # (Auto) 0.0 x10^3/uL (0.0-0.7) Basophils # (Auto) 0.0 x10^3/uL (0.0-0.2) Sodium Level 135 mmol/L (136-145) Potassium Level 3.6 mmol/L (3.5-5.1) Chloride Level 98 mmol/L (98-107) Carbon Dioxide Level 30 mmol/L (21-32) Anion Gap 7 (6-14) Blood Urea Nitrogen 7 mg/dL (7-20) Creatinine 0.3 mg/dL (0.6-1.0) Estimated GFR (Cockcroft-Gault) 255.8 Glucose Level 83 mg/dL (70-99) Calcium Level 8.7 mg/dL (8.5-10.1) Medications Current Medications Cefazolin Sodium 50 ml @ 100 mls/hr 1X ONCE IV Last administered on 16:00; Start 01/18/17 at 16:00; Stop 01/18/17 at 16:29; Status DC Cefazolin Sodium 50 ml @ As Directed STK-MED ONCE IV ; Start 01/18/17 at 15:16; Stop 01/18/17 at 15:17; Status DC Diphenhydramine HCl (Benadryl) 50 mg 1X ONCE IVP Last administered on 15:30; Start 01/18/17 at 15:30; Stop 01/18/17 at 15:31; Status DC Diphenhydramine HCl (Benadryl) 50 mg STK-MED ONCE .ROUTE ; Start 01/18/17 at 14: 58; Stop 01/18/17 at 14:59; Status DC Fentanyl Citrate (Fentanyl 2ml Vial) 100 mcg 1X ONCE IV Last administered on 01/18/17 16:06; Start 01/18/17 at 15:00; Stop 01/18/17 at 15:01; Status DC Fentanyl Citrate (Fentanyl 2ml Vial) 100 mcg STK-MED ONCE .ROUTE ; Start at 15:39; Stop 01/18/17 at 15:40; Status DC Fluconazole (Diflucan) 100 mg DAILY PO Last administered on 01/19/17 08:56; Start 01/19/17 at 09:00 Flumazenil (Romazicon) 0.5 mg STK-MED ONCE IV ; Start 01/18/17 at 15:17; Stop 01/18/17 at 15:18; Status DC Iohexol (Omnipaque 300 Mg/ml) 50 ml 1X ONCE IART Last administered on 15:00; Start 01/18/17 at 15:00; Stop 01/18/17 at 15:01; Status DC Iohexol (Omnipaque 300 Mg/ml) 50 ml STK-MED ONCE .ROUTE ; Start 01/18/17 at 13: 32; Stop 01/18/17 at 13:33; Status DC Lidocaine/Sodium Bicarbonate (Buffered Lidocaine 1%) 20 ml 1X ONCE IJ Last administered on 01/18/17 15:00; Start 01/18/17 at 15:00; Stop 01/18/17 at 15:01 ; Status DC Lidocaine/Sodium Bicarbonate (Buffered Lidocaine 1%) 20 ml STK-MED ONCE IJ ; Start 01/18/17 at 13:32; Stop 01/18/17 at 13:33; Status DC Midazolam HCl (Versed) 2 mg STK-MED ONCE .ROUTE ; Start 01/18/17 at 14:51; Stop 01/18/17 at 14:52; Status DC Naloxone HCl (Narcan) 0.4 mg STK-MED ONCE .ROUTE ; Start 01/18/17 at 15:17; Stop 01/18/17 at 15:18; Status DC Vitals/I & O Vital Sign - Last 24 Hours 01/18/17 01/18/17 01/18/17 01/18/17 10:48 14:24 15:59 16:06 Temp 98.3 98.5 98.3 98.5 Pulse 73 78 80 Resp 17 17 16 16 B/P (MAP) 174/70 (104) 162/72 (102) Pulse Ox 98 99 100 99 O2 Delivery Room Air Room Air Room Air Room Air 01/18/17 01/18/17 01/18/17 01/18/17 17:41 18:28 18:28 19:51 Temp 98.7 98.7 Pulse 68 Resp 16 B/P (MAP) 165/57 (93) Pulse Ox 99 99 99 94 O2 Delivery Room Air Room Air Room Air Room Air 01/18/17 01/18/17 01/19/17 01/19/17 20:00 23:37 03:37 06:50 Temp 97.5 97.7 98.2 97.5 97.7 98.2 Pulse 68 75 95 Resp 16 18 17 B/P (MAP) 169/ 184/64 (104) 197/76 (116) Pulse Ox 95 96 96 O2 Delivery Room Air Room Air Room Air Room Air 01/19/17 01/19/17 01/19/17 01/19/17 07:34 08:00 08:54 08:55 Pulse 95 95 B/P (MAP) 160/53 (88) 160/53 160/53 O2 Delivery Room Air Intake and Output 01/19/17 01/19/17 01/20/17 15:00 23:00 07:00 Output Total 200 ml Balance -200 ml NIKKI FOX MD Jan 19, 2017 09:50
[2017-01-19] MEDS: TAMSULOSIN 0.4 MG CAP.ER.24H. PO SCH (20:17)
[2017-01-19] MEDS: SIMVASTATIN 10 MG TABLET PO SCH (20:17)
[2017-01-19] MEDS: POLYETHYLENE GLYCOL 3350 17 GM PACKET. PO SCH (20:18)
[2017-01-20 03:15] VITALS: BP 136/47
[2017-01-20 07:00] VITALS: BP 146/50
[2017-01-20] MEDS: LEVOTHYROXINE 50 MCG TABLET PO SCH (07:13)
[2017-01-20] MEDS: PANTOPRAZOLE 40 MG TABLET.DR. PO SCH (07:13)
[2017-01-20] MEDS: LIDOCAINE (700MG/PATCH) PATCH. TD SCH (08:33)
[2017-01-20] MEDS: DOCUSATE SODIUM 100 MG CAPSULE. PO SCH (08:33)
[2017-01-20] MEDS: FLUCONAZOLE 100 MG TABLET. PO SCH (08:34)
[2017-01-20] MEDS: METOPROLOL SUCC 24HR ER 50 MG TAB.ER.24H. PO SCH (08:34)
[2017-01-20] MEDS: traMADol 50 MG TABLET PO PRN (08:42)
[2017-01-20] MEDS: RALOXIFENE 60 MG TABLET. PO SCH (08:42)
[2017-01-20] MEDS: POTASSIUM CHLORIDE 10 MEQ TABLET.ER. PO SCH ×2 (08:42→18:19)
[2017-01-20] MEDS: MULTIVITAMIN with MINERAL TABLET. PO SCH (08:42)
[2017-01-20] MEDS: LOSARTAN POTASSIUM 25 MG TABLET. PO SCH (08:42)
[2017-01-20] MEDS: SENNOSIDES 8.6 MG TABLET PO SCH (08:42)
[2017-01-20] MEDS: CLOTRIMAZOLE/BETAMETH 1%-0.05% TOPICAL CREAM 15GM TUBE. TP SCH ×2 (08:44→20:52)
[2017-01-20 10:51] VITALS: BP 118/46
[2017-01-20] MEDS: ONDANSETRON PF 4 MG/2 ML VIAL. IV PRN (11:29)
--- NOTE | 2017-01-20 11:46 | PDOC ---
IM PROGRESS NOTES- Subjective Subjective Back pain is improving. Objective Vitals Vital Signs Date Time Temp Pulse Resp B/P (MAP) Pulse Ox O2 Delivery O2 Flow Rate FiO2 01/20/17 10:51 98.1 70 18 118/46 (70) 93 Room Air 98.1 Physical Exam Physical Exam General appearance - alert,well appearing, and in no distress and oriented to person, place, and time Mental Status - alert, oriented to person, place, and time, affect appropriate to mood Head - normal Chest - clear to auscultation, no wheezes, rales or rhonchi, symmetric air entry Heart - S1 and S2 normal Abdomen - soft, nontender, nondistended, no masses or organomegaly Neurological - alert and oriented LS spine non tender Musculoskeletal - no muscular tenderness noted Extremities - no pedal edema Skin - warm and dry Labs Laboratory Tests Test 01/19/17 05:40 White Blood Count 8.1 x10^3/uL (4.0-11.0) Red Blood Count 3.54 x10^6/uL (3.50-5.40) Hemoglobin 11.4 g/dL (12.0-15.5) Hematocrit 33.6 % (36.0-47.0) Mean Corpuscular Volume 95 fL (79-100) Mean Corpuscular Hemoglobin 32 pg (25-35) Mean Corpuscular Hemoglobin Concent 34 g/dL (31-37) Red Cell Distribution Width 13.2 % (11.5-14.5) Platelet Count 217 x10^3/uL (140-400) Neutrophils (%) (Auto) 83 % (31-73) Lymphocytes (%) (Auto) 7 % (24-48) Monocytes (%) (Auto) 9 % (0-9) Eosinophils (%) (Auto) 0 % (0-3) Basophils (%) (Auto) 0 % (0-3) Neutrophils # (Auto) 6.7 x10^3uL (1.8-7.7) Lymphocytes # (Auto) 0.6 x10^3/uL (1.0-4.8) Monocytes # (Auto) 0.7 x10^3/uL (0.0-1.1) Eosinophils # (Auto) 0.0 x10^3/uL (0.0-0.7) Basophils # (Auto) 0.0 x10^3/uL (0.0-0.2) Sodium Level 135 mmol/L (136-145) Potassium Level 3.6 mmol/L (3.5-5.1) Chloride Level 98 mmol/L (98-107) Carbon Dioxide Level 30 mmol/L (21-32) Anion Gap 7 (6-14) Blood Urea Nitrogen 7 mg/dL (7-20) Creatinine 0.3 mg/dL (0.6-1.0) Estimated GFR (Cockcroft-Gault) 255.8 Glucose Level 83 mg/dL (70-99) Calcium Level 8.7 mg/dL (8.5-10.1) Assessment Assessment Problems Medical Problems: (1) Diarrhea Status: Acute FINAL IMPRESSION: compression fracture L3 and L4,osteoporotic 1. Abdominal pain. 2. Hyponatremia. 3. Diarrhea, probably secondary to laxatives including mag citrate. 4. Hypothyroidism. 5. Osteoporosis with acute compression fractures L3,4. 6. Gastroesophageal reflux disease, irritable bowel syndrome. PLAN: Procedure Performed Procedure Performed 01/18/17 L3 and L4 kyphoplasty spoke with pt and family daughter, agreeable to go back to assisted care facility sunday. will ambulate and do pt/ot C diff neg MRI lumbar spine showed compression fractures L3 and L4. Nausea and vomiting try Zofran, ct abd and pelvis 3 days ago neg We will get PT/OT. Slowly improving. D/w patient and family. Plan Plan For more details regarding further plans, please refer to the orders. PERNELL DIETRICH MD Jan 20, 2017 11:46
[2017-01-20 15:24] VITALS: BP 144/49
[2017-01-20 19:39] VITALS: BP 144/52
[2017-01-20] MEDS: TAMSULOSIN 0.4 MG CAP.ER.24H. PO SCH (20:51)
[2017-01-20] MEDS: SIMVASTATIN 10 MG TABLET PO SCH (20:51)
[2017-01-20] MEDS: POLYETHYLENE GLYCOL 3350 17 GM PACKET. PO SCH (20:52)
[2017-01-20 22:49] VITALS: BP 147/57
[2017-01-21 03:09] VITALS: BP 129/54
[2017-01-21 07:00] VITALS: BP 169/64
[2017-01-21] MEDS: LEVOTHYROXINE 50 MCG TABLET PO SCH (08:08)
[2017-01-21] MEDS: POTASSIUM CHLORIDE 10 MEQ TABLET.ER. PO SCH ×2 (08:09→16:35)
[2017-01-21] MEDS: PANTOPRAZOLE 40 MG TABLET.DR. PO SCH (08:11)
[2017-01-21] MEDS: RALOXIFENE 60 MG TABLET. PO SCH (08:53)
[2017-01-21] MEDS: DOCUSATE SODIUM 100 MG CAPSULE. PO SCH (08:53)
[2017-01-21] MEDS: SENNOSIDES 8.6 MG TABLET PO SCH (08:53)
[2017-01-21] MEDS: MULTIVITAMIN with MINERAL TABLET. PO SCH (08:54)
[2017-01-21] MEDS: LOSARTAN POTASSIUM 25 MG TABLET. PO SCH (08:54)
[2017-01-21] MEDS: METOPROLOL SUCC 24HR ER 50 MG TAB.ER.24H. PO SCH (08:54)
[2017-01-21] MEDS: FLUCONAZOLE 100 MG TABLET. PO SCH (08:54)
[2017-01-21] MEDS: CLOTRIMAZOLE/BETAMETH 1%-0.05% TOPICAL CREAM 15GM TUBE. TP SCH ×2 (08:55→21:59)
[2017-01-21] MEDS: LIDOCAINE (700MG/PATCH) PATCH. TD SCH (08:55)
--- NOTE | 2017-01-21 10:59 | PDOC ---
IM PROGRESS NOTES- Subjective Subjective Back pain is improving. Objective Vitals Vital Signs Date Time Temp Pulse Resp B/P (MAP) Pulse Ox O2 Delivery O2 Flow Rate FiO2 01/21/17 08:54 99 169/64 01/21/17 07:45 Room Air 01/21/17 07:00 97.9 18 98 97.9 Physical Exam Physical Exam General appearance - alert,well appearing, and in no distress and oriented to person, place, and time Mental Status - alert, oriented to person, place, and time, affect appropriate to mood Head - normal Chest - clear to auscultation, no wheezes, rales or rhonchi, symmetric air entry Heart - S1 and S2 normal Abdomen - soft, nontender, nondistended, no masses or organomegaly Neurological - alert and oriented LS spine non tender Musculoskeletal - no muscular tenderness noted Extremities - no pedal edema Skin - warm and dry Assessment Assessment Problems Medical Problems: (1) Diarrhea Status: Acute FINAL IMPRESSION: compression fracture L3 and L4,osteoporotic 1. Abdominal pain. 2. Hyponatremia. 3. Diarrhea, probably secondary to laxatives including mag citrate. 4. Hypothyroidism. 5. Osteoporosis with acute compression fractures L3,4. 6. Gastroesophageal reflux disease, irritable bowel syndrome. PLAN: Procedure Performed Procedure Performed 01/18/17 L3 and L4 kyphoplasty spoke with pt and family daughter, agreeable to go back to assisted care facility sunday. will ambulate and do pt/ot C diff neg MRI lumbar spine showed compression fractures L3 and L4. Nausea and vomiting try Zofran, ct abd and pelvis 3 days ago neg We will get PT/OT. Slowly improving. D/w patient. Hypertension BP 169/64- not controlled.Received BP meds- monitor. Plan Plan For more details regarding further plans, please refer to the orders. PERNELL DIETRICH MD Jan 21, 2017 10:59
[2017-01-21 11:00] VITALS: BP 155/62
[2017-01-21 15:08] VITALS: BP 139/53
[2017-01-21 19:00] VITALS: BP 169/65
[2017-01-21] MEDS: TAMSULOSIN 0.4 MG CAP.ER.24H. PO SCH (21:54)
[2017-01-21] MEDS: SIMVASTATIN 10 MG TABLET PO SCH (21:54)
[2017-01-21] MEDS: POLYETHYLENE GLYCOL 3350 17 GM PACKET. PO SCH (21:54)
[2017-01-21 23:25] VITALS: BP 177/64
[2017-01-22 03:36] VITALS: BP 164/60
[2017-01-22 07:00] VITALS: BP 147/64
[2017-01-22] MEDS: LIDOCAINE (700MG/PATCH) PATCH. TD SCH (09:00)
[2017-01-22] MEDS: CLOTRIMAZOLE/BETAMETH 1%-0.05% TOPICAL CREAM 15GM TUBE. TP SCH (09:00)
--- NOTE | 2017-01-22 09:10 | PDOC ---
PROGRESS NOTES Subjective Subjective She feels better but having problems with urinary incontinence and some dysuria and back pain is better and she does not feel like she get enough care to go to assisted living and would like to go to [facility] until her incontinence issues are better controlled. Objective Objective Vital Signs Date Time Temp Pulse Resp B/P (MAP) Pulse Ox O2 Delivery O2 Flow Rate FiO2 01/22/17 07:00 98.0 68 16 147/64 (91) Room Air 98.0 01/22/17 03:36 96 Physical Exam Physical Exam She is alert and comfortable and she got up and walked at bedside with roller walker under supervision and he PVR volume is around 200 ml. slightly high. Assessment Assessment Problems Medical Problems: (1) Diarrhea Status: Acute Plan Plan of Care To check for urinary tract infection and to consider increasing dose of flomax and to consider transfer to [facility]F when medically stable. Comment Review of Relevant I have reviewed the following items zara (where applicable) has been applied. Medications Current Medications Fentanyl Citrate (Fentanyl 2ml Vial) 25 mcg PRN Q15MIN PRN IV PAIN Last administered on 01/15/17 10:42; Start 01/15/17 at 10:30 Sodium Chloride 1,000 ml @ 1,000 mls/hr 1X ONCE IV Last administered on 10:40; Start 01/15/17 at 10:30; Stop 01/15/17 at 11:29; Status DC Ondansetron HCl (Zofran) 4 mg 1X ONCE IV Last administered on 01/15/17 11:06 ; Start 01/15/17 at 10:45; Stop 01/15/17 at 10:46; Status DC Levothyroxine Sodium (Synthroid) 50 mcg 1X ONCE PO Last administered on 11:07; Start 01/15/17 at 10:45; Stop 01/15/17 at 10:46; Status DC Metoprolol Succinate (Toprol Xl) 50 mg 1X ONCE PO Last administered on 11:08; Start 01/15/17 at 10:45; Stop 01/15/17 at 10:46; Status DC Cephalexin HCl (Keflex) 500 mg 1X ONCE PO Last administered on 01/15/17 11:07 ; Start 01/15/17 at 10:45; Stop 01/15/17 at 10:46; Status DC Fentanyl Citrate (Fentanyl 2ml Vial) 50 mcg PRN Q2HR PRN IV PAIN Last administered on 01/16/17 05:41; Start 01/15/17 at 14:00; Stop 01/16/17 at 13:59 ; Status DC Sodium Chloride 1,000 ml @ 100 mls/hr 1X ONCE IV Last administered on 14:37; Start 01/15/17 at 14:00; Stop 01/15/17 at 23:59; Status DC Docusate Sodium (Colace) 100 mg DAILY PO Last administered on 01/21/17 08:53; Start 01/15/17 at 16:00 Levothyroxine Sodium (Synthroid) 25 mcg DAILY07 PO ; Start 01/15/17 at 16:00; Stop 01/15/17 at 16:00; Status DC Losartan Potassium (Cozaar) 25 mg DAILY PO Last administered on 01/21/17 08:54 ; Start 01/15/17 at 16:00 Polyethylene Glycol (miraLAX PACKET) 17 gm HS PO Last administered on 21:54; Start 01/15/17 at 21:00 Raloxifene HCl (Evista) 60 mg DAILY PO Last administered on 01/21/17 08:53; Start 01/15/17 at 16:00 Sennosides (Senna) 8.6 mg DAILY PO Last administered on 01/21/17 08:53; Start 01/15/17 at 16:00 Artificial Tears (Artificial Tears) 1 drop PRN QID PRN OU DRY EYE; Start at 15:30 Metoprolol Succinate (Toprol Xl) 50 mg DAILY PO Last administered on 01/21/17 08:54; Start 01/15/17 at 16:00 Multivitamins (Thera M Plus) 1 tab DAILY PO Last administered on 01/21/17 08: 54; Start 01/15/17 at 16:00 Simvastatin (Zocor) 10 mg QHS PO Last administered on 01/21/17 21:54; Start 01/15/17 at 21:00 Sodium Chloride 1,000 ml @ 75 mls/hr [id number] IV Last administered on 22:35; Start 01/15/17 at 15:15; Stop 01/18/17 at 09:34; Status DC Enoxaparin Sodium (Lovenox 40mg Syringe) 40 mg DAILY16 SQ Last administered on 01/16/17 15:33; Start 01/15/17 at 16:00; Stop 01/18/17 at 09:34; Status DC Levothyroxine Sodium (Synthroid) 50 mcg DAILY07 PO Last administered on 08:08; Start 01/16/17 at 07:00 Info (Do NOT chart on this placeholder) 1 each PRN 1X PRN MC SEE COMMENTS; Start 01/15/17 at 17:00; Status UNV Influenza Virus Vaccine Quadrival (Fluarix Quad 4013-9765 Syringe) 0.5 ml ONCE ONCE VAX IM Last administered on 01/15/17 17:42; Start 01/15/17 at 18:00; Stop 01/15/17 at 18:04; Status DC Levothyroxine Sodium (Synthroid) 50 mcg DAILY07 PO ; Start 01/16/17 at 14:00; Stop 01/16/17 at 14:10; Status DC Potassium Chloride (Klor-Con) 10 meq BIDWMEALS PO Last administered on 16:35; Start 01/16/17 at 17:00 Pantoprazole Sodium (Protonix) 40 mg DAILYAC PO Last administered on 01/21/17 08:11; Start 01/17/17 at 07:30 Pantoprazole Sodium (Protonix) 40 mg 1X ONCE PO Last administered on 15:33; Start 01/16/17 at 13:45; Stop 01/16/17 at 13:46; Status DC Diazepam (Valium) 5 mg 1X ONCE PO Last administered on 01/16/17 15:57; Start 01/16/17 at 15:30; Stop 01/16/17 at 15:46; Status DC Lidocaine (Lidoderm) 1 patch DAILY TD Last administered on 01/21/17 08:55; Start 01/16/17 at 16:00 Tramadol HCl (Ultram) 100 mg PRN Q6HRS PRN PO PAIN Last administered on 08:42; Start 01/16/17 at 16:00 Acetaminophen/ Codeine Phosphate (Tylenol #3) 1 tab PRN Q6HRS PRN PO PAIN Last administered on 01/22/17 03:45; Start 01/16/17 at 16:00 Tamsulosin HCl (Flomax) 0.4 mg QHS PO Last administered on 01/21/17 21:54; Start 01/16/17 at 21:00 Ondansetron HCl (Zofran) 4 mg PRN Q6HRS PRN IV NAUSEA/VOMITING Last administered on 01/20/17 11:29; Start 01/17/17 at 09:45 Fluconazole (Diflucan) 100 mg DAILY PO Last administered on 01/21/17 08:54; Start 01/19/17 at 09:00 Fluconazole (Diflucan) 100 mg 1X ONCE PO Last administered on 01/18/17 10:53 ; Start 01/18/17 at 09:45; Stop 01/18/17 at 09:46; Status DC Betamethasone/ Clotrimazole (Lotrisone) 1 patrick BID TP Last administered on 08:55; Start 01/18/17 at 09:45 Potassium Chloride (Klor-Con) 10 meq STK-MED ONCE PO ; Start 01/16/17 at 18:00; Stop 01/18/17 at 12:28; Status DC Potassium Chloride (Klor-Con) 10 meq STK-MED ONCE PO ; Start 01/17/17 at 18:00; Stop 01/18/17 at 12:28; Status DC Potassium Chloride (Klor-Con) 10 meq STK-MED ONCE PO ; Start 01/18/17 at 09:00; Stop 01/18/17 at 12:29; Status DC Iohexol (Omnipaque 300 Mg/ml) 50 ml STK-MED ONCE .ROUTE ; Start 01/18/17 at 13: 32; Stop 01/18/17 at 13:33; Status DC Lidocaine/Sodium Bicarbonate (Buffered Lidocaine 1%) 20 ml STK-MED ONCE IJ ; Start 01/18/17 at 13:32; Stop 01/18/17 at 13:33; Status DC Midazolam HCl (Versed) 2 mg STK-MED ONCE .ROUTE ; Start 01/18/17 at 14:51; Stop 01/18/17 at 14:52; Status DC Lidocaine/Sodium Bicarbonate (Buffered Lidocaine 1%) 20 ml 1X ONCE IJ Last administered on 01/18/17 15:00; Start 01/18/17 at 15:00; Stop 01/18/17 at 15:01 ; Status DC Fentanyl Citrate (Fentanyl 2ml Vial) 100 mcg 1X ONCE IV Last administered on 01/18/17 16:06; Start 01/18/17 at 15:00; Stop 01/18/17 at 15:01; Status DC Iohexol (Omnipaque 300 Mg/ml) 50 ml 1X ONCE IART Last administered on 15:00; Start 01/18/17 at 15:00; Stop 01/18/17 at 15:01; Status DC Diphenhydramine HCl (Benadryl) 50 mg STK-MED ONCE .ROUTE ; Start 01/18/17 at 14: 58; Stop 01/18/17 at 14:59; Status DC Cefazolin Sodium 50 ml @ As Directed STK-MED ONCE IV ; Start 01/18/17 at 15:16; Stop 01/18/17 at 15:17; Status DC Flumazenil (Romazicon) 0.5 mg STK-MED ONCE IV ; Start 01/18/17 at 15:17; Stop 01/18/17 at 15:18; Status DC Naloxone HCl (Narcan) 0.4 mg STK-MED ONCE .ROUTE ; Start 01/18/17 at 15:17; Stop 01/18/17 at 15:18; Status DC Diphenhydramine HCl (Benadryl) 50 mg 1X ONCE IVP Last administered on 15:30; Start 01/18/17 at 15:30; Stop 01/18/17 at 15:31; Status DC Fentanyl Citrate (Fentanyl 2ml Vial) 100 mcg STK-MED ONCE .ROUTE ; Start at 15:39; Stop 01/18/17 at 15:40; Status DC Cefazolin Sodium 50 ml @ 100 mls/hr 1X ONCE IV Last administered on 16:00; Start 01/18/17 at 16:00; Stop 01/18/17 at 16:29; Status DC Active Scripts Active Reported Keflex (Cephalexin) 500 Mg Capsule 1 Cap PO TID 7 Days Diflucan (Fluconazole) 100 Mg Tablet 50 Mg PO WEEKLY Levothyroxine Sodium 50 Mcg Tablet 1 Tab PO DAILY Refresh Optive Eye Drops (Carboxymethylcellulos/Glycerin) 15 Ml Drops 1 Drop EACHEYE QID Miralax (Polyethylene Glycol 3350) 17 Gm Powd.pack 1 Packet PO HS [oscal] Centrum Silver Tablet (Multivits-Min/Fa/Lycopene/Lut) 1 Each Tablet 1 Each PO DAILY Pravastatin Sodium 40 Mg Tablet 1 Tab PO DAILY Dexilant (Dexlansoprazole) 60 Mg Ramone.mp 60 Mg PO Evista (Raloxifene Hcl) 60 Mg Tablet 1 Tab PO DAILY Losartan Potassium 25 Mg Tablet 25 Mg PO DAILY Toprol Xl (Metoprolol Succinate) 50 Mg Tab.er.24h 1 Tab PO DAILY Furosemide 40 Mg Tablet 40 Mg PO DAILY Klor-Con 10 (Potassium Chloride) 10 Meq Tablet.er 10 Tab PO BID Vitals/I & O Vital Sign - Last 24 Hours 01/21/17 01/21/17 01/21/17 01/21/17 11:00 15:08 19:00 20:00 Temp 98.4 97.5 98.2 98.4 97.5 98.2 Pulse 93 81 71 Resp 18 18 16 B/P (MAP) 155/62 (93) 139/53 (81) 169/65 (99) Pulse Ox 96 95 O2 Delivery Room Air Room Air Room Air Room Air 01/21/17 01/22/17 01/22/17 01/22/17 23:25 03:36 03:45 05:23 Temp 98.4 98.2 98.4 98.2 Pulse 63 74 Resp 16 16 B/P (MAP) 177/64 (101) 164/60 (94) Pulse Ox 95 96 O2 Delivery Room Air Room Air Room Air Room Air 01/22/17 07:00 Temp 98.0 98.0 Pulse 68 Resp 16 B/P (MAP) 147/64 (91) O2 Delivery Room Air ROSIO KIMBLE MD Jan 22, 2017 09:10
[2017-01-22] MEDS: LEVOTHYROXINE 50 MCG TABLET PO SCH (09:40)
[2017-01-22] MEDS: MULTIVITAMIN with MINERAL TABLET. PO SCH (09:40)
[2017-01-22] MEDS: SENNOSIDES 8.6 MG TABLET PO SCH (09:40)
[2017-01-22] MEDS: LOSARTAN POTASSIUM 25 MG TABLET. PO SCH (09:40)
[2017-01-22] MEDS: DOCUSATE SODIUM 100 MG CAPSULE. PO SCH (09:41)
[2017-01-22] MEDS: RALOXIFENE 60 MG TABLET. PO SCH (09:41)
[2017-01-22] MEDS: PANTOPRAZOLE 40 MG TABLET.DR. PO SCH (09:41)
[2017-01-22] MEDS: FLUCONAZOLE 100 MG TABLET. PO SCH (09:41)
[2017-01-22] MEDS: POTASSIUM CHLORIDE 10 MEQ TABLET.ER. PO SCH (09:41)
[2017-01-22] MEDS: METOPROLOL SUCC 24HR ER 50 MG TAB.ER.24H. PO SCH (09:42)
--- NOTE | 2017-01-22 09:42 | PDOC ---
PROGRESS NOTES Subjective Subjective BLADDER PROBLEMS Objective Objective Vital Signs Date Time Temp Pulse Resp B/P (MAP) Pulse Ox O2 Delivery O2 Flow Rate FiO2 01/22/17 07:00 98.0 68 16 147/64 (91) Room Air 98.0 01/22/17 03:36 96 Physical Exam Abdomen: Normal bowel sounds, Soft Heart: Regular rate, Normal S1, Normal S2 Extremities: No clubbing General: Alert HEENT: Atraumatic Lungs: Clear to auscultation MUSCULOSKELETAL: No swelling Neck: Supple Neuro: Normal speech Psych/Mental Status: Mental status NL Skin: No breakdown Diagnosis Problem List Problems Medical Problems: (1) Diarrhea Status: Acute Assessment Assessment Problems Medical Problems: (1) Diarrhea Status: Acute FINAL IMPRESSION: bladder problems,doping and incontinence compression fracture L3 and L4,osteoporotic 1. Abdominal pain. 2. Hyponatremia. 3. Diarrhea, probably secondary to laxatives including mag citrate. 4. Hypothyroidism. 5. Osteoporosis with acute compression fractures L3,4. 6. Gastroesophageal reflux disease, irritable bowel syndrome. PLAN: ua+c/s armored car messenger consult. started on flomax. d/c to SNU today ,[facility]. spoke with rehab doctor Procedure Performed Procedure Performed 01/18/17 L3 and L4 kyphoplasty spoke with pt and family daughter, agreeable to go back to assisted care facility sunday. will ambulate and do pt/ot C diff neg MRI lumbar spine showed compression fractures L3 and L4. Nausea and vomiting try Zofran, ct abd and pelvis 3 days ago neg We will get PT/OT. Slowly improving. D/w patient. Hypertension BP 169/64- not controlled.Received BP meds- monitor. Problems: Plan Plan of Care Problems Medical Problems: (1) Diarrhea Status: Acute Comment Review of Relevant I have reviewed the following items zara (where applicable) has been applied. Vitals/I & O Vital Sign - Last 24 Hours 01/21/17 01/21/17 01/21/17 01/21/17 11:00 15:08 19:00 20:00 Temp 98.4 97.5 98.2 98.4 97.5 98.2 Pulse 93 81 71 Resp 18 18 16 B/P (MAP) 155/62 (93) 139/53 (81) 169/65 (99) Pulse Ox 96 95 O2 Delivery Room Air Room Air Room Air Room Air 1001/22/17 01/22/17 01/22/17 23:25 03:36 03:45 05:23 Temp 98.4 98.2 98.4 98.2 Pulse 63 74 Resp 16 16 B/P (MAP) 177/64 (101) 164/60 (94) Pulse Ox 95 96 O2 Delivery Room Air Room Air Room Air Room Air 01/22/17 07:00 Temp 98.0 98.0 Pulse 68 Resp 16 B/P (MAP) 147/64 (91) O2 Delivery Room Air NIKKI FOX MD Jan 22, 2017 09:42
[2017-01-22 10:42] VITALS: BP 124/49
--- NOTE | 2017-01-28 21:27 | PDOC ---
Provider Note Provider Note Discharge summary dictated. #[id number] NIKKI FOX MD Jan 28, 2017 21:27
--- NOTE | 2017-01-28 23:08 | DS ---
DATE OF DISCHARGE: 01/22/2017 REASON FOR ADMISSION TO THE HOSPITAL: Hypokalemia, diarrhea, abdominal pain, back pain, compression fracture of the spine secondary to osteoporosis. CONSULTATIONS: 1. Dr. Villafana. 2. Interventional Radiology. PROCEDURES DONE: 1. Lumbar spine MRI. 2. Kyphoplasty. HOSPITAL COURSE: The patient is an 86-year-old female in assisted facility. She came to the Emergency Room 2 days ago for abdominal pain, was found lot of stool, with initial history of IBS, diverticulosis and GERD. The patient was given Fleet Enema as well as mag citrate and she went back to the assisted facility. She was having lot of diarrhea this time. She came in with sodium 127 and potassium was 4.4. The patient was given IV fluids and stool was sent for C. diff, which came back negative. Initially, urine was negative. She was having lot of back pain, had x-ray, shows compression fractures of L2, 3 and 4 and the patient had MRI of the lumbar spine, which shows L3-L4 acute compression fracture. L2 was chronic compression fracture. The patient was seen by Interventional Radiology, had a kyphoplasty of L3 and L4 done. The patient did tolerate the procedure well. No major complication noted and the patient was having lot of problems getting out of the bed, was seen by Physical Therapy Rehab and it was felt that she would need to go to [facility] facility before going back to assisted facility. The patient was transferred to [facility]. FINAL DIAGNOSES: 1. L3-L4 compression fracture, secondary to osteoporosis, had a kyphoplasty. 2. Hyponatremia secondary to recent laxatives, corrected with IV fluids. 3. Irritable bowel syndrome. 4. Gastroesophageal reflux disease. 5. Hypothyroidism. 6. General debility. DISPOSITION: To [facility] for less than 30 days. After that, she will go back to assisted facility. NIKKI FOX MD DR: RUCHI/lanie JOB#: [id number] / [id number]
== END 2017-01-22 14:03 | DRG 516 ==
LOC: ER 09:22 → 6 SOUTH 13:05
PROVIDERS: ADMIT Internal Medicine; ATTEND Internal Medicine
PROC: 0QS03ZZ Reposition Lumbar Vertebra, Percutaneous Approach (ICD-10-PCS; principal; 2017-01-15)
PROC: 0QU03JZ Supplement Lumbar Vertebra with Synthetic Substitute, Percutaneous Approach (ICD-10-PCS; 2017-01-15)
DX: M80.08XA Age-related osteoporosis with current pathological fracture, vertebra(e), initial encounter for fracture (principal); E87.1 Hypo-osmolality and hyponatremia; I10 Essential (primary) hypertension; K58.0 Irritable bowel syndrome with diarrhea; T47.4X5A Adverse effect of other laxatives, initial encounter; K21.9 Gastro-esophageal reflux disease without esophagitis; E03.9 Hypothyroidism, unspecified; E78.00 Pure hypercholesterolemia, unspecified; E78.5 Hyperlipidemia, unspecified; G89.29 Other chronic pain; H40.9 Unspecified glaucoma; K57.90 Diverticulosis of intestine, part unspecified, without perforation or abscess without bleeding; M41.80 Other forms of scoliosis, site unspecified; M65.9 Synovitis and tenosynovitis, unspecified; R32 Unspecified urinary incontinence; H26.9 Unspecified cataract; M46.90 Unspecified inflammatory spondylopathy, site unspecified; Z90.710 Acquired absence of both cervix and uterus; Z88.1 Allergy status to other antibiotic agents; Z88.8 Allergy status to other drugs, medicaments and biological substances; Y92.89 Other specified places as the place of occurrence of the external cause
CPT/HCPCS: 22514; 22515; 36415; 51701; 72100; 72148; 74022; 74177; 80048; 80053; 80076; 81001; 83690; 84443; 85007; 85025; 85610; 85730; 87086; 87186; 87324; 87641; 90686; 93005; 96361; 96374; 96375; 99152; 99153; C1725; C1892; J0690; J1200; J1650; J2405; J3010; J7030; Q9967; 97116; 97530; 97535; 99285-25

== ENCOUNTER 2017-10-07 20:36 | Inpatient (IN) | payer MEDICARE, OTHER ==
[2017-10-07] MEDS ORDERED: ETOMIDATE 20 MG/10 ML VIAL. IV (22:42)
[2017-10-07] MEDS: ONDANSETRON PF 4 MG/2 ML VIAL. IV (23:00)
[2017-10-07] MEDS: ETOMIDATE 20 MG/10 ML VIAL. IV (23:22)
[2017-10-08] MEDS: ACETAMINOPHEN 325 MG TABLET. PO ×2 (01:39→09:53)
[2017-10-08 10:55] LABS: ADD MAN DIFF? NO
[2017-10-08 11:10] LABS: ANION GAP 6 (6-14); BLOOD UREA NITROGEN 12 mg/dL (7-20); CALCIUM 8.1 mg/dL (8.5-10.1); CARBON DIOXIDE 27 mmol/L (21-32); CHLORIDE 103 mmol/L (98-107); CREATININE 0.6 mg/dL (0.6-1.0); GFR 94.8; GLUCOSE 108 mg/dL (70-99); POTASSIUM 3.7 mmol/L (3.5-5.1); SODIUM 136 mmol/L (136-145)
[2017-10-08 11:23] LABS: BASO % 0 % (0-3); EOS # 0.1 x10^3/uL (0.0-0.7); EOS % 1 % (0-3); HEMATOCRIT 28.9 % (36.0-47.0); HEMOGLOBIN 10.1 g/dL (12.0-15.5); LYMPH # 0.6 x10^3/uL (1.0-4.8); LYMPH % 10 % (24-48); MEAN CORPUSCULAR HEMOGLOBIN 32 pg (25-35); MEAN CORPUSCULAR HGB CONC 35 g/dL (31-37); MEAN CORPUSCULAR VOLUME 91 fL (79-100); MONO # 0.8 x10^3/uL (0.0-1.1); MONO % 13 % (0-9); NEUT # 4.8 x10^3uL (1.8-7.7); NEUT % 75 % (31-73); PLATELET COUNT 267 x10^3/uL (140-400); RED BLOOD COUNT 3.16 x10^6/uL (3.50-5.40); RED CELL DISTRIBUTION WIDTH 14.3 % (11.5-14.5); WHITE BLOOD COUNT 6.3 x10^3/uL (4.0-11.0)
[2017-10-08 11:39] LABS: INR 1.2 (0.8-1.1); PROTHROMBIN TIME PATIENT 14.5 SEC (11.7-14.0)
[2017-10-08] MEDS: PANTOPRAZOLE 40 MG TABLET.DR. PO (12:34)
[2017-10-08] MEDS: POTASSIUM CHLORIDE 20 MEQ TABLET.ER. PO (12:34)
[2017-10-08] MEDS: DOCUSATE SODIUM 100 MG CAPSULE. PO (12:35)
[2017-10-08] MEDS: LEVOTHYROXINE 50 MCG TABLET PO (12:35)
[2017-10-08] MEDS: RALOXIFENE 60 MG TABLET. PO (12:35)
[2017-10-08] MEDS: MULTIVITAMIN with MINERAL TABLET. PO (12:35)
[2017-10-08] MEDS: METOPROLOL SUCC 24HR ER 50 MG TAB.ER.24H. PO (12:36)
[2017-10-08] MEDS: LOSARTAN POTASSIUM 25 MG TABLET. PO (12:36)
[2017-10-08] MEDS: POLYVINYL ALCOHOL 1.4% OPHTH SOLUTION 15ML BOTTLE. OU (13:00)
[2017-10-08] MEDS ORDERED: NON FORMULARY ITEM (Dextran 70/Hypromellose (Artificial Tears Eye Drops) 1 DROP) EACHEYE (13:00)
[2017-10-08] MEDS: ACETAMINOPHEN 500 MG TABLET PO ×3 (14:31→20:19)
[2017-10-08] MEDS ORDERED: POLYVINYL ALCOHOL 1.4% OPHTH SOLUTION 15ML BOTTLE. OU (16:30)
[2017-10-08] MEDS: HYDROcodone/APAP 5/325MG 1 TAB TABLET PO ×2 (16:40→23:38)
[2017-10-08] MEDS: POLYETHYLENE GLYCOL 3350 17 GM PACKET. PO (20:18)
[2017-10-08] MEDS: SIMVASTATIN 10 MG TABLET PO (20:19)
[2017-10-08] MEDS: ONDANSETRON ODT 4 MG TAB.RAPDIS. PO (23:38)
[2017-10-09 00:13] LABS: MRSA BY PCR Negative (Negative)
[2017-10-09 03:06] LABS: ADD MAN DIFF? NO
[2017-10-09 03:13] LABS: BASO % 0 % (0-3); EOS # 0.1 x10^3/uL (0.0-0.7); EOS % 1 % (0-3); HEMATOCRIT 28.2 % (36.0-47.0); HEMOGLOBIN 9.7 g/dL (12.0-15.5); LYMPH # 0.7 x10^3/uL (1.0-4.8); LYMPH % 10 % (24-48); MEAN CORPUSCULAR HEMOGLOBIN 32 pg (25-35); MEAN CORPUSCULAR HGB CONC 34 g/dL (31-37); MEAN CORPUSCULAR VOLUME 94 fL (79-100); MONO # 0.8 x10^3/uL (0.0-1.1); MONO % 12 % (0-9); NEUT # 5.2 x10^3uL (1.8-7.7); NEUT % 77 % (31-73); PLATELET COUNT 233 x10^3/uL (140-400); RED BLOOD COUNT 2.99 x10^6/uL (3.50-5.40); RED CELL DISTRIBUTION WIDTH 14.8 % (11.5-14.5); WHITE BLOOD COUNT 6.7 x10^3/uL (4.0-11.0)
[2017-10-09 04:27] LABS: ANION GAP 8 (6-14); BLOOD UREA NITROGEN 12 mg/dL (7-20); CARBON DIOXIDE 24 mmol/L (21-32); CHLORIDE 104 mmol/L (98-107); CREATININE 0.5 mg/dL (0.6-1.0); GLUCOSE 112 mg/dL (70-99); SODIUM 136 mmol/L (136-145)
[2017-10-09] MEDS: PANTOPRAZOLE 40 MG TABLET.DR. PO (05:42)
[2017-10-09] MEDS: LEVOTHYROXINE 50 MCG TABLET PO (05:42)
[2017-10-09] MEDS: HYDROcodone/APAP 5/325MG 1 TAB TABLET PO ×2 (07:26→13:24)
[2017-10-09] MEDS: POTASSIUM CHLORIDE 20 MEQ TABLET.ER. PO (07:26)
[2017-10-09] MEDS: RALOXIFENE 60 MG TABLET. PO (09:07)
[2017-10-09] MEDS: MULTIVITAMIN with MINERAL TABLET. PO (09:07)
[2017-10-09] MEDS: ACETAMINOPHEN 500 MG TABLET PO ×2 (09:07→13:23)
[2017-10-09] MEDS: DOCUSATE SODIUM 100 MG CAPSULE. PO (09:07)
[2017-10-09] MEDS: METOPROLOL SUCC 24HR ER 50 MG TAB.ER.24H. PO (09:08)
[2017-10-09] MEDS: LOSARTAN POTASSIUM 25 MG TABLET. PO (09:08)
== END 2017-10-09 14:45 | DRG 563 ==
LOC: 4 NORTH 10-08 00:10 → ER 20:36
PROVIDERS: Internal Medicine
PROC: 0PSHXZZ Reposition Right Radius, External Approach (ICD-10-PCS; principal; 2017-10-08)
PROC: 0HBRXZZ Excision of Toe Nail, External Approach (ICD-10-PCS; 2017-10-09)
PROC: 0HBRXZZ Excision of Toe Nail, External Approach (ICD-10-PCS; 2017-10-09)
PROC: 0HBRXZZ Excision of Toe Nail, External Approach (ICD-10-PCS; 2017-10-09)
PROC: 0HBRXZZ Excision of Toe Nail, External Approach (ICD-10-PCS; 2017-10-09)
PROC: 0HBRXZZ Excision of Toe Nail, External Approach (ICD-10-PCS; 2017-10-09)
PROC: 0HBRXZZ Excision of Toe Nail, External Approach (ICD-10-PCS; 2017-10-09)
PROC: 0HBRXZZ Excision of Toe Nail, External Approach (ICD-10-PCS; 2017-10-09)
PROC: 0HBRXZZ Excision of Toe Nail, External Approach (ICD-10-PCS; 2017-10-09)
DX: S52.501A Unspecified fracture of the lower end of right radius, initial encounter for closed fracture (principal); K21.9 Gastro-esophageal reflux disease without esophagitis; I25.10 Atherosclerotic heart disease of native coronary artery without angina pectoris; I10 Essential (primary) hypertension; E78.00 Pure hypercholesterolemia, unspecified; E03.9 Hypothyroidism, unspecified; M19.90 Unspecified osteoarthritis, unspecified site; K57.90 Diverticulosis of intestine, part unspecified, without perforation or abscess without bleeding; R33.9 Retention of urine, unspecified; Z88.8 Allergy status to other drugs, medicaments and biological substances; H40.9 Unspecified glaucoma; Z96.612 Presence of left artificial shoulder joint; I73.9 Peripheral vascular disease, unspecified; B35.1 Tinea unguium; Y92.231 Patient bathroom in hospital as the place of occurrence of the external cause; W01.0XXA Fall on same level from slipping, tripping and stumbling without subsequent striking against object, initial encounter; Y93.89 Activity, other specified; Z90.710 Acquired absence of both cervix and uterus; Z88.6 Allergy status to analgesic agent; Z88.3 Allergy status to other anti-infective agents; Y99.8 Other external cause status
CPT/HCPCS: 25605; 36415; 70450; 73030; 73090; 73100; 73110; 73502; 80048; 85025; 85610; 87641; 96374; 97166-GO; 99285; 99285-25; J2405; Q0162